=== PATIENT | female | born 1985 | race African-American/Black ===

== ENCOUNTER 2016-07-05 16:37 | Emergency (ER) | payer MEDICAID ==
--- NOTE | 2016-07-05 16:50 | ER Document Report ---
ED Medical Screen (RME) - General Stated Complaint: ALCOHOL WITHDRAW Time seen by provider: 16:46 Mode of Arrival: Ambulatory Information source: Patient Notes: 30-year-old female presents to ED for alcohol withdrawal. States her last drink was 10 PM yesterday states she was drinking malt beverages and does not know how many. She states she been drinking for the last 3 days. Today she's having shaking balance is off having difficulty in sleeping felt like she was having trouble breathing and nausea and vomiting. States she came to the ED last time she had a binge stop drinking. She states the symptoms today are worse than last time. Last menstrual period 06/13/2016. I have greeted and performed a rapid initial assessment of this patient. A comprehensive ED assessment and evaluation of the patient, analysis of test results and completion of medical decision making process will be conducted by an additional ED providers. TRAVEL OUTSIDE OF THE [place] IN LAST 30 DAYS: No - Related Data Allergies/Adverse Reactions: banana [Banana] Allergy (Verified 05/16/16 08:33) latex [Latex] Allergy (Verified 05/16/16 08:33) peach [[place]] Allergy (Verified 05/16/16 08:33) strawberry [[place]] Allergy (Verified 05/16/16 08:33) Past Medical History - Past Medical History Cardiac Medical History: Reports: Hx Hypertension Pulmonary Medical History: Reports: Hx Asthma - as a child GI Medical History: Denies: Hx Gastritis, Hx Gastroesophageal Reflux Disease, Hx Ulcer Musculoskeltal Medical History: Reports Hx Arthritis - right knee Past Surgical History: Reports: Hx Abdominal Surgery - GBP, Hx Gastric Bypass Surgery - Immunizations Immunizations up to date: Yes Hx Diphtheria, Pertussis, Tetanus Vaccination: Yes Physical Exam - Vital signs Vitals: Temp Pulse Resp BP Pulse Ox 98.2 F 91 20 153/106 H 94 07/05/16 16:45 07/05/16 16:45 07/05/16 16:45 07/05/16 16:45 07/05/16 16:45 Course - Vital Signs Vital signs: Temp Pulse Resp BP Pulse Ox 98.2 F 91 20 153/106 H 94 07/05/16 16:45 07/05/16 16:45 07/05/16 16:45 07/05/16 16:45 07/05/16 16:45
[2016-07-05] MEDS ORDERED: ONDANSETRON 4 MG TAB.RAPDIS PO ONE (16:51)
[2016-07-05 17:28] LABS: ABSOLUTE LYMPHOCYTES (AUTO) 0.7 10^3/uL (0.5-4.7); ABSOLUTE MONOCYTES (AUTO) 0.3 10^3/uL (0.1-1.4); ABSOLUTE NEUT (AUTO) 6.1 10^3/uL (1.7-8.2); BASOPHILS % (AUTO) 0.3 % (0-2); EOSINOPHILS % (AUTO) 0.5 % (0-6); HEMATOCRIT 43.9 % (36.0-47.0); HEMOGLOBIN 14.4 g/dL (12.0-15.5); HGB HCT DIFFERENCE -0.7; LYMPHOCYTES % (AUTO) 9.6 % (13-45); MEAN CORPUSCULAR HEMOGLOBIN 32.4 pg (27.0-33.4); MEAN CORPUSCULAR HGB CONC 32.8 g/dL (32.0-36.0); MEAN CORPUSCULAR VOLUME 99 fl (80-97); MONOCYTES % (AUTO) 4.1 % (3-13); RED BLOOD COUNT 4.44 10^6/uL (3.72-5.28); SEGMENTED NEUTROPHILS % (AUTO) 85.5 % (42-78); WHITE BLOOD COUNT 7.2 10^3/uL (4.0-10.5)
[2016-07-05 17:42] LABS: APPEARANCE,URINE SLIGHTLY-CLOUDY; BILIRUBIN,URINE NEGATIVE (NEGATIVE); GLUCOSE, URINE NEGATIVE (NEGATIVE); KETONES,URINE NEGATIVE (NEGATIVE); LEUKOCYTE ESTERASE,URINE NEGATIVE (NEGATIVE); NITRITE,URINE NEGATIVE (NEGATIVE); PROTEIN,URINE NEGATIVE (NEGATIVE); URINE SPECIFIC GRAVITY 1.012; UROBILINOGEN,URINE NEGATIVE mg/dL (<2.0)
[2016-07-05 17:46] LABS: URINE BARBITURATES SCREEN NEGATIVE; URINE METHADONE SCREEN NEGATIVE; URINE PHENCYCLIDINE SCREEN NEGATIVE
[2016-07-05 17:50] LABS: ALANINE AMINOTRANSFERASE 25 U/L (9-52); ALBUMIN 4.6 g/dL (3.5-5.0); ALCOHOL 153 mg/dL (NONE DETECTED); ALKALINE PHOSPHATASE 54 U/L (38-126); ANION GAP 15 (5-19); ASPARTATE AMINO TRANSFERASE 36 U/L (14-36); BILIRUBIN,TOTAL 0.9 mg/dL (0.2-1.3); BLOOD UREA NITROGEN 7 mg/dL (7-20); CALCIUM 8.8 mg/dL (8.4-10.2); CARBON DIOXIDE 28 mmol/L (22-30); CHLORIDE 104 mmol/L (98-107); CREATININE RESULT 0.82 mg/dL (0.52-1.25); GLUCOSE 85 mg/dL (75-110); POTASSIUM 3.9 mmol/L (3.6-5.0); SODIUM 146.7 mmol/L (137-145); TOTAL PROTEIN 7.5 g/dL (6.3-8.2)
[2016-07-05] MEDS ORDERED: NORMAL SALINE 1000 ML 1,000 ML IV ONE (18:52)
[2016-07-05] MEDS ORDERED: DIAZEPAM 5 MG TABLET PO ONE (18:52)
[2016-07-05] MEDS ORDERED: ONDANSETRON ODT 4 MG TAB (6 TAB/DSPK) PO PRN (18:54)
--- NOTE | 2016-07-05 18:55 | ER Document Report ---
ED General - General Chief Complaint: Alcohol Withdrawl Stated Complaint: ALCOHOL WITHDRAW Mode of Arrival: Ambulatory Notes: Patient is a 30-year-old female presents with concerns of alcohol withdrawal. States that she binges for approximately 3 days every month but does not drink alcohol in between these episodes. She was seen for a similar episode approximately 3 weeks ago for which she was seen in the emergency department. She is complaining of diffuse body aches, feelings of dehydration, nausea and vomiting. She has not tried anything to improve her symptoms and has not noticed that anything worsens her symptoms. She denies any coingestions. Denies any suicidal or homicidal ideation. She has not seen her primary care physician regarding today's concerns. TRAVEL OUTSIDE OF THE [place] IN LAST 30 DAYS: No - Related Data Allergies/Adverse Reactions: banana [Banana] Allergy (Verified 07/05/16 16:49) latex [Latex] Allergy (Verified 07/05/16 16:49) peach [[place]] Allergy (Verified 07/05/16 16:49) strawberry [[place]] Allergy (Verified 07/05/16 16:49) Past Medical History - General Information source: Patient - Social History Smoking Status: Current Every Day Smoker Chew tobacco use (# tins/day): No Frequency of alcohol use: Heavy Drug Abuse: None Lives with: Spouse/Significant other Family History: Reviewed & Not Pertinent Patient has suicidal ideation: No Patient has homicidal ideation: No - Past Medical History Cardiac Medical History: Reports: Hx Hypertension Pulmonary Medical History: Reports: Hx Asthma - as a child Renal/ Medical History: Denies: Hx Peritoneal Dialysis GI Medical History: Denies: Hx Gastritis, Hx Gastroesophageal Reflux Disease, Hx Ulcer Musculoskeltal Medical History: Reports Hx Arthritis - right knee Past Surgical History: Reports: Hx Abdominal Surgery - GBP, Hx Gastric Bypass Surgery - Immunizations Immunizations up to date: Yes Hx Diphtheria, Pertussis, Tetanus Vaccination: Yes Review of Systems - Review of Systems Notes: Constitutional: Negative for fever. Positive for myalgias HENT: Negative for sore throat. Eyes: Negative for visual changes. Cardiovascular: Negative for chest pain. Respiratory: Negative for shortness of breath. Gastrointestinal: Negative for abdominal pain, positive for vomiting Genitourinary: Negative for dysuria. Musculoskeletal: Negative for back pain. Skin: Negative for rash. Neurological: Negative for headaches, weakness or numbness. 10 point ROS negative except as marked above and in HPI. Physical Exam - Vital signs Vitals: Temp Pulse Resp BP Pulse Ox 98.2 F 91 20 153/106 H 94 07/05/16 16:45 07/05/16 16:45 07/05/16 16:45 07/05/16 16:45 07/05/16 16:45 Interpretation: Hypertensive Notes: PHYSICAL EXAMINATION: GENERAL: Well-appearing, well-nourished and in no acute distress. HEAD: Atraumatic, normocephalic. EYES: Pupils equal round and reactive to light, extraocular movements intact, sclera anicteric, conjunctiva are normal. ENT: nares patent, oropharynx clear without exudates. Moist mucous membranes. NECK: Normal range of motion, supple without lymphadenopathy LUNGS: Breath sounds clear to auscultation bilaterally and equal. No wheezes rales or rhonchi. HEART: Regular rate and rhythm without murmurs ABDOMEN: Soft, nontender, normoactive bowel sounds. No guarding, no rebound. No masses appreciated. EXTREMITIES: Normal range of motion, no pitting or edema. No cyanosis. NEUROLOGICAL: No focal neurological deficits. Moves all extremities spontaneously and on command. PSYCH: Normal mood, normal affect. SKIN: Warm, Dry, normal turgor, no rashes or lesions noted. Course - Re-evaluation Re-evalutation: 07/05/16 18:54 Patient presents with acute alcohol intoxication without any additional acute complaints. Admits to heavy alcohol use today. No evidence of trauma on exam. Patient was monitored in the emergency department until they were clinically sober. Able to ambulate and talking clear sentences prior to discharge. Tolerating oral intake without difficulty. The patient has been instructed to seek help for alcohol detoxification. She was given a small amount of Librium time of discharge to help through an anticipated mild withdrawal. At this time will discharge with return precautions and follow-up recommendations. Verbal discharge instructions given a the bedside and opportunity for questions given. Medication warnings reviewed. Patient is in agreement with this plan and has verbalized understanding of return precautions and the need for primary care follow-up in the next 24-72 hours. - Vital Signs Vital signs: Temp Pulse Resp BP Pulse Ox 98.4 F 84 20 146/93 H 99 07/05/16 20:00 07/05/16 20:00 07/05/16 20:00 07/05/16 20:00 07/05/16 20:00 - Laboratory Result Diagrams: 07/05/16 17:05 07/05/16 17:05 Laboratory results interpreted by me: 07/05/16 07/05/16 07/05/16 17:05 17:05 17:05 MCV 99 H RDW 15.0 H Plt Count 128 L Seg Neutrophils % 85.5 H Lymphocytes % 9.6 L Sodium 146.7 H Urine Blood SMALL H Discharge - Discharge Clinical Impression: Alcohol withdrawal Qualifiers: Complication of substance-induced condition: uncomplicated Qualified Code(s): F10.230 - Alcohol dependence with withdrawal, uncomplicated Condition: Good Disposition: HOME, SELF-CARE Additional Instructions: You need to return to the emergency room immediately if you pass out, or vomiting so severely your unable to keep anything down, start hallucinate, or have any other symptoms that are of concern to you. You need to go to an inpatient program and should speak with your primary care doctor regarding these resources. Take the Librium 25 mg every 6 hours up to 4 times as needed for insomnia and agitation. Use the Zofran 48 mg every 6 hours as needed for nausea and vomiting. Prescriptions: Chlordiazepoxide HCl [Librium 25 mg Capsule] 1 cap PO QID #6 capsule Referrals: DEVIKA PEREZ DO [Primary Care Provider] - Follow up in 3-5 days
[2016-07-05 20:24] VITALS: BP 146/93
== END 2016-07-05 20:00 | disposition home or self-care (01) ==
LOC: ER 16:37
DX: F10.230 Alcohol dependence with withdrawal, uncomplicated (principal); F17.210 Nicotine dependence, cigarettes, uncomplicated
CPT/HCPCS: 99284; 96360; 36415; 80307 ×2; 83735; 84703; 85025; 80053; 81001; J3490; S0119; J7030

== ENCOUNTER 2016-07-14 23:32 | Emergency (ER) | payer MEDICAID, OTHER ==
--- NOTE | 2016-07-15 01:26 | ER Document Report ---
ED General - General Chief Complaint: Skin Problem Stated Complaint: POSSIBLE RASH Notes: Patient is a 30-year-old female without past medical history who presents with 1 week of a rash in her bilateral inner thighs and lower torso. Describes the rash as a pruritic, painful rash. She has been trying permethrin cream as well as antihistamines without any improvement of her symptoms. She denies any history of similar symptoms in the past. Nothing worsens her symptoms. She has not seen her primary care physician regarding today's concern. She denies any associated fever, nausea, vomiting, headache, neck pain, or altered mental status. No known sick contacts. TRAVEL OUTSIDE OF THE [place] IN LAST 30 DAYS: No - Related Data Allergies/Adverse Reactions: banana [Banana] Allergy (Verified 07/05/16 16:49) latex [Latex] Allergy (Verified 07/05/16 16:49) peach [[place]] Allergy (Verified 07/05/16 16:49) strawberry [[place]] Allergy (Verified 07/05/16 16:49) Past Medical History - General Information source: Patient - Social History Smoking Status: Current Every Day Smoker Chew tobacco use (# tins/day): No Frequency of alcohol use: Occasional Drug Abuse: None Lives with: Spouse/Significant other Family History: Reviewed & Not Pertinent Patient has suicidal ideation: No Patient has homicidal ideation: No - Past Medical History Cardiac Medical History: Reports: Hx Hypertension Pulmonary Medical History: Reports: Hx Asthma - as a child Renal/ Medical History: Denies: Hx Peritoneal Dialysis GI Medical History: Denies: Hx Gastritis, Hx Gastroesophageal Reflux Disease, Hx Ulcer Musculoskeltal Medical History: Reports Hx Arthritis - right knee Past Surgical History: Reports: Hx Abdominal Surgery - GBP, Hx Gastric Bypass Surgery - Immunizations Immunizations up to date: Yes Hx Diphtheria, Pertussis, Tetanus Vaccination: Yes Review of Systems - Review of Systems Notes: Constitutional: Negative for fever. HENT: Negative for sore throat. Eyes: Negative for visual changes. Cardiovascular: Negative for chest pain. Respiratory: Negative for shortness of breath. Gastrointestinal: Negative for abdominal pain, vomiting or diarrhea. Genitourinary: Negative for dysuria. Musculoskeletal: Negative for back pain. Skin: Positive for rash. Neurological: Negative for headaches, weakness or numbness. 10 point ROS negative except as marked above and in HPI. Physical Exam - Vital signs Vitals: Temp Pulse Resp BP Pulse Ox 98.5 F 108 H 16 148/97 H 96 07/14/16 23:42 07/14/16 23:42 07/14/16 23:42 07/14/16 23:42 07/14/16 23:42 Interpretation: Hypertensive, Tachycardic Notes: PHYSICAL EXAMINATION: GENERAL: Well-appearing, well-nourished and in no acute distress. HEAD: Atraumatic, normocephalic. EYES: Pupils equal round and reactive to light, extraocular movements intact, sclera anicteric, conjunctiva are normal. ENT: nares patent, oropharynx clear without exudates. Moist mucous membranes. NECK: Normal range of motion, supple without lymphadenopathy LUNGS: Breath sounds clear to auscultation bilaterally and equal. No wheezes rales or rhonchi. HEART: Regular rate and rhythm without murmurs ABDOMEN: Soft, nontender, normoactive bowel sounds. No guarding, no rebound. No masses appreciated. EXTREMITIES: Normal range of motion, no pitting or edema. No cyanosis. NEUROLOGICAL: No focal neurological deficits. Moves all extremities spontaneously and on command. PSYCH: Normal mood, normal affect. SKIN: Warm, Dry, normal turgor, multiple areas over the bilateral inner thighs, lower abdomen and right chest wall of erythema with plaques. Scattered satellite lesions Course - Re-evaluation Re-evalutation: 07/15/16 01:26 Patient presents with a rash on her bilateral inner thighs, abdomen and chest wall. This is a raised rash with scattered areas of plaque. There are multiple satellite lesions. Concerning for possible topical fungal infection. Will prescribe nystatin with triamcinolone ointment and recommend oral antihistamines. Patient is otherwise nontoxic in appearance. Vitals within normal lives at the time my assessment.At this time will discharge with return precautions and follow-up recommendations. Verbal discharge instructions given a the bedside and opportunity for questions given. Medication warnings reviewed. Patient is in agreement with this plan and has verbalized understanding of return precautions and the need for primary care follow-up in the next 24-72 hours. - Vital Signs Vital signs: Temp Pulse Resp BP Pulse Ox 98.3 F 100 16 138/88 H 96 07/15/16 01:40 07/15/16 01:40 07/15/16 01:40 07/15/16 01:40 07/15/16 01:40 Discharge - Discharge Clinical Impression: Fungal rash of trunk Condition: Good Disposition: HOME, SELF-CARE Additional Instructions: Please apply the cream that has been prescribed as directed. You can also take [id number] cetirizine 10 mg up to 3 times daily as needed for itching. Please follow closely with your primary care physician the next several days. Return if you develop worsening of the rash, fever greater than 100.4F, have spreading of the rash, or have any other symptoms that are concerning to you. Prescriptions: Nystatin/Triamcin [Nystatin-Triamcinolone Ointm] 60 gm TP TID #60 oint...g. Referrals: DEVIKA PEREZ DO [Primary Care Provider] - Follow up tomorrow
[2016-07-15 01:48] VITALS: BP 138/88
== END 2016-07-15 01:48 | disposition home or self-care (01) ==
LOC: ER 23:32
DX: B48.8 Other specified mycoses (principal); I10 Essential (primary) hypertension; F17.200 Nicotine dependence, unspecified, uncomplicated; Z91.018 Allergy to other foods; Z91.040 Latex allergy status; Z98.84 Bariatric surgery status
CPT/HCPCS: 99283

== ENCOUNTER 2016-08-01 13:30 | Emergency (ER) | payer MEDICAID ==
[2016-08-01 14:00] VITALS: BP 141/98
--- NOTE | 2016-08-01 14:02 | ER Document Report ---
ED Medical Screen (RME) - General Stated Complaint: RIGHT KNEE PAIN, SWELLING Notes: patient p/w chronic knee pain and wants a new MRI today I have greeted and performed a rapid initial assessment of this patient. A comprehensive ED assessment and evaluation of the patient, analysis of test results and completion of the medical decision making process will be conducted by additional ED providers. TRAVEL OUTSIDE OF THE [place] IN LAST 30 DAYS: No - Related Data Allergies/Adverse Reactions: banana [Banana] Allergy (Verified 07/05/16 16:49) latex [Latex] Allergy (Verified 07/05/16 16:49) peach [[place]] Allergy (Verified 07/05/16 16:49) strawberry [[place]] Allergy (Verified 07/05/16 16:49) Past Medical History - Past Medical History Cardiac Medical History: Reports: Hx Hypertension Pulmonary Medical History: Reports: Hx Asthma - as a child Renal/ Medical History: Denies: Hx Peritoneal Dialysis GI Medical History: Denies: Hx Gastritis, Hx Gastroesophageal Reflux Disease, Hx Ulcer Musculoskeltal Medical History: Reports Hx Arthritis - right knee Past Surgical History: Reports: Hx Abdominal Surgery - GBP, Hx Gastric Bypass Surgery - Immunizations Immunizations up to date: Yes Hx Diphtheria, Pertussis, Tetanus Vaccination: Yes Physical Exam - Vital signs Vitals: Temp Pulse BP Pulse Ox 97.9 F 86 141/98 H 98 08/01/16 13:58 08/01/16 13:58 08/01/16 13:58 08/01/16 13:58 Course - Vital Signs Vital signs: Temp Pulse Resp BP Pulse Ox 97.9 F 86 141/98 H 98 08/01/16 13:58 08/01/16 13:58 08/01/16 13:58 08/01/16 13:58
== END 2016-08-01 16:53 | disposition left against medical advice (07) ==
LOC: ER 13:30
DX: G89.29 Other chronic pain (principal); M25.561 Pain in right knee; I10 Essential (primary) hypertension; Z91.018 Allergy to other foods; Z91.040 Latex allergy status; Z98.84 Bariatric surgery status; Z53.20 Procedure and treatment not carried out because of patient's decision for unspecified reasons
CPT/HCPCS: 99281

== ENCOUNTER 2016-08-24 08:36 | Emergency (ER) | payer MEDICAID ==
[2016-08-24] MEDS ORDERED: ONDANSETRON HCL INJ/PF 4 MG/2 ML SDV IV ONE (09:34)
[2016-08-24] MEDS: NORMAL SALINE 1000 ML 1,000 ML IV PRN ×2 (09:43→11:37)
[2016-08-24 09:48] LABS: ABSOLUTE EOSINOPHILS # (AUTO) 0.1 10^3/uL (0.0-0.6); ABSOLUTE LYMPHOCYTES (AUTO) 1.7 10^3/uL (0.5-4.7); ABSOLUTE MONOCYTES (AUTO) 0.4 10^3/uL (0.1-1.4); ABSOLUTE NEUT (AUTO) 3.1 10^3/uL (1.7-8.2); BASOPHILS % (AUTO) 0.8 % (0-2); EOSINOPHILS % (AUTO) 2.3 % (0-6); HEMATOCRIT 43.5 % (36.0-47.0); HEMOGLOBIN 14.8 g/dL (12.0-15.5); HGB HCT DIFFERENCE 0.9; MEAN CORPUSCULAR HEMOGLOBIN 31.9 pg (27.0-33.4); MEAN CORPUSCULAR HGB CONC 33.9 g/dL (32.0-36.0); MEAN CORPUSCULAR VOLUME 94 fl (80-97); MONOCYTES % (AUTO) 7.2 % (3-13); RED BLOOD COUNT 4.64 10^6/uL (3.72-5.28); RED CELL DISTRIBUTION WIDTH 15.7 % (11.5-14.0); SEGMENTED NEUTROPHILS % (AUTO) 57.7 % (42-78); WHITE BLOOD COUNT 5.3 10^3/uL (4.0-10.5)
--- NOTE | 2016-08-24 09:58 | ER Document Report ---
ED Substance Abuse / Acc. OD - General Chief Complaint: Alcohol Withdrawl Stated Complaint: ETOH WITHDRAWL Time seen by provider: 09:53 Mode of Arrival: Ambulatory Information source: Patient Notes: 30-year-old female presents to ED for nausea vomiting and dehydration. She states she has been on a binge for alcohol. The last 3 days drinking at least 10 her right chest eliminating her last one was at 1900 yesterday. She started drinking trying to drink water and states she has vomited every water she has drank. She states she usually binge drinks one week out of the month and has a therapy and classes status post to start next week. She states she has tried AA and failed that TRAVEL OUTSIDE OF THE [place] IN LAST 30 DAYS: No - HPI Patient complains to provider of: Alcohol abuse Onset: Yesterday Onset/Duration: Gradual Quality of pain: No pain Severity: None Pain Level: Denies Overdose of: Alcohol Associated Symptoms: Nausea/vomiting Similar symptoms previously: Yes - Related Data Allergies/Adverse Reactions: banana [Banana] Allergy (Verified 08/24/16 08:43) latex [Latex] Allergy (Verified 08/24/16 08:43) peach [[place]] Allergy (Verified 08/24/16 08:43) strawberry [[place]] Allergy (Verified 08/24/16 08:43) Past Medical History - General Information source: Patient Last Menstrual Period: 08/16/2016 - Social History Smoking Status: Current Every Day Smoker Cigarette use (# per day): Yes - half pack per day Chew tobacco use (# tins/day): No Frequency of alcohol use: Heavy - Binge drinks at least 1 week out of the month Drug Abuse: None Lives with: Alone Family History: Arthritis, DM, Hypertension, Malignancy, Thyroid Disfunction Patient has suicidal ideation: No Patient has homicidal ideation: No - Past Medical History Cardiac Medical History: Reports: Hx Hypertension Pulmonary Medical History: Reports: Hx Asthma - as a child EENT Medical History: Reports: None Neurological Medical History: Reports: None Endocrine Medical History: Reports: None Renal/ Medical History: Reports: Hx Ovarian Cysts Malignancy Medical History: Reports: None GI Medical History: Reports: None Musculoskeltal Medical History: Reports Hx Arthritis - right knee Skin Medical History: Reports None Psychiatric Medical History: Reports: None Traumatic Medical History: Reports: None Infectious Medical History: Reports: None Past Surgical History: Reports: Hx Gastric Bypass Surgery, Hx Oral Surgery - [place] teeth, Hx Umbilical Hernia - Immunizations Immunizations up to date: Yes Hx Diphtheria, Pertussis, Tetanus Vaccination: Yes Review of Systems - Review of Systems Constitutional: No symptoms reported EENT: No symptoms reported Cardiovascular: No symptoms reported Respiratory: No symptoms reported Gastrointestinal: Abdominal pain, Nausea, Vomiting Genitourinary: No symptoms reported Female Genitourinary: No symptoms reported Musculoskeletal: No symptoms reported Skin: No symptoms reported Hematologic/Lymphatic: No symptoms reported Neurological/Psychological: No symptoms reported Physical Exam - Vital signs Vitals: Temp Pulse Resp BP Pulse Ox 98.1 F 93 20 151/119 H 97 08/24/16 08:41 08/24/16 08:41 08/24/16 08:41 08/24/16 08:41 08/24/16 08:41 Interpretation: Normal - General General appearance: Appears well, Alert - HEENT Head: Normocephalic, Atraumatic Eyes: Normal Pupils: PERRL - Respiratory Respiratory status: No respiratory distress Chest status: Nontender Breath sounds: Normal Chest palpation: Normal - Cardiovascular Rhythm: Regular Heart sounds: Normal auscultation Murmur: No - Abdominal Inspection: Normal Distension: No distension Bowel sounds: Normal Tenderness: Tender - Generalized Organomegaly: No organomegaly - Back Back: Normal, Nontender - Extremities General upper extremity: Normal inspection, Nontender, Normal color, Normal ROM , Normal temperature General lower extremity: Normal inspection, Nontender, Normal color, Normal ROM , Normal temperature, Normal weight bearing. No: Vikki's sign - Neurological Neuro grossly intact: Yes Cognition: Normal Orientation: AAOx4 Simpson Coma Scale Eye Opening: Spontaneous [place] Coma Scale Verbal: Oriented [place] Coma Scale Motor: Obeys Commands [place] Coma Scale Total: 15 Speech: Normal Motor strength normal: LUE, RUE, LLE, RLE Sensory: Normal - Psychological Associated symptoms: Normal affect, Normal mood - Skin Skin Temperature: Warm Skin Moisture: Dry Skin Color: Normal Course - Re-evaluation Re-evalutation: 08/24/16 16:42 Patient is steady on her feet, alert and oriented and was requested to call a ride home and was put up for discharge. Patient encouraged to please stop drinking increase by mouth intake and to follow-up with her counselor and program for alcoholics. - Vital Signs Vital signs: Temp Pulse Resp BP Pulse Ox 99.2 F 82 16 156/98 H 98 08/24/16 17:11 08/24/16 17:11 08/24/16 17:11 08/24/16 17:11 08/24/16 17:11 - Laboratory Result Diagrams: 08/24/16 09:19 08/24/16 09:19 Laboratory results interpreted by me: 08/24/16 08/24/16 09:19 09:19 RDW 15.7 H Sodium 145.6 H BUN 6 L AST 90 H ALT 66 H Discharge - Discharge Clinical Impression: Alcohol abuse Alcohol intoxication Qualifiers: Complication of substance-induced condition: uncomplicated Qualified Code(s): F10.120 - Alcohol abuse with intoxication, uncomplicated Condition: Stable Disposition: HOME, SELF-CARE Instructions: Family Physicians / Practices Additional Instructions: Acute Alcohol Intoxication Your evaluation revealed very high levels of alcohol. You can from drinking a large amount of alcohol rapidly! Further, there's the risk of falls , traffic accidents, and fights. A high portion (about 50 percent) of the serious injuries seen in hospital emergency rooms are caused by alcohol. Alcohol overdosage is usually due to an underlying emotional or psychiatric problem. You may benefit from counselling. If "binge" drinking is an ongoing problem for you, or if you drink ANY AMOUNT of alcohol EVERY day, you most likely have a tendency to alcoholism. You should avoid alcohol totally. We can refer you for treatment. Persons with alcohol problems are often also prone to other addictions -- you should discuss any use of medications or drugs with the doctor. You should be watched at home for the next several hours by someone who has not been drinking. Get extra fluids for the next 24 hours. Call the doctor if there is repeated vomiting, increasing headache, decreasing level of alertness, or any other worsening. Intravenous (IV) Fluids As part of your care today, you received intravenous (IV) fluids. IV fluids are administered to patients who are dehydrated or to those who have certain chemical (electrolyte) abnormalities that need correcting. Antinausea Medication You have been given a medication to suppress nausea and vomiting. This type of medication can be given as a shot, pill, or suppository. It will usually last for many hours. Pills and shots usually last six to eight hours, suppositories last about 12 hours. For the typical illness, only one or two doses of the medication may be necessary. Mild lightheadedness may occur. This type of medicine can cause drowsiness. Do not drive or operate dangerous machinery while under its influence. Do not mix with alcohol. See your doctor at once if you have muscle spasms or tightness, or uncontrollable motions (particularly of the neck, mouth, or jaw). Persistent vomiting or severe lightheadedness should also be evaluated by the physician. You will given 1 IV with had thiamine folate and multivitamins in it. If you continue to drink you need to be sure that you take a multivitamin on a regular basis as well as folate and thiamine. Please follow-up with your therapist in your program to help you with your alcohol abuse. Please follow-up with your primary doctor Friday or Friday FOLLOW-UP CARE: If you have been referred to a physician for follow-up care, call the physician s office for an appointment as you were instructed or within the next two days. If you experience worsening or a significant change in your symptoms, notify the physician immediately or return to the Emergency Department at any time for re-evaluation. Prescriptions: Ondansetron [Zofran Odt 4 mg Tablet] 1 tab PO Q6H #15 tab.rapdis Forms: Elevated Blood Pressure, Smoking Cessation Education, Return to Work
[2016-08-24 10:10] LABS: ALANINE AMINOTRANSFERASE 66 U/L (9-52); ALCOHOL 185 mg/dL (NONE DETECTED); ALKALINE PHOSPHATASE 54 U/L (38-126); ANION GAP 12 (5-19); ASPARTATE AMINO TRANSFERASE 90 U/L (14-36); BILIRUBIN,TOTAL 0.7 mg/dL (0.2-1.3); BLOOD UREA NITROGEN 6 mg/dL (7-20); CALCIUM 8.9 mg/dL (8.4-10.2); CARBON DIOXIDE 30 mmol/L (22-30); CHLORIDE 104 mmol/L (98-107); CREATININE RESULT 0.79 mg/dL (0.52-1.25); GLUCOSE 88 mg/dL (75-110); POTASSIUM 3.9 mmol/L (3.6-5.0); SODIUM 145.6 mmol/L (137-145); TOTAL PROTEIN 7.1 g/dL (6.3-8.2)
[2016-08-24] MEDS ORDERED: [UNRECOGNIZED DRUG - REMARK] IV ONE ×4 (12:00)
[2016-08-24 14:36] LABS: APPEARANCE,URINE CLEAR; BILIRUBIN,URINE NEGATIVE (NEGATIVE); GLUCOSE, URINE NEGATIVE (NEGATIVE); KETONES,URINE NEGATIVE (NEGATIVE); LEUKOCYTE ESTERASE,URINE NEGATIVE (NEGATIVE); NITRITE,URINE NEGATIVE (NEGATIVE); PROTEIN,URINE NEGATIVE (NEGATIVE); URINE SPECIFIC GRAVITY 1.006; UROBILINOGEN,URINE NEGATIVE mg/dL (<2.0)
[2016-08-24 14:54] LABS: URINE BARBITURATES SCREEN NEGATIVE; URINE METHADONE SCREEN NEGATIVE; URINE OPIATES LOW NEGATIVE; URINE PHENCYCLIDINE SCREEN NEGATIVE
[2016-08-24 17:12] VITALS: BP 156/98
== END 2016-08-24 17:12 | disposition home or self-care (01) ==
LOC: ER 08:36
DX: F10.120 Alcohol abuse with intoxication, uncomplicated (principal); R11.2 Nausea with vomiting, unspecified; E86.0 Dehydration; F17.210 Nicotine dependence, cigarettes, uncomplicated; Z91.018 Allergy to other foods; Z91.040 Latex allergy status; Z98.84 Bariatric surgery status
CPT/HCPCS: 99285; 96361; 96375; 96365; 96366; 36415; 80307 ×2; 84703; 85025; 80053; 81001; J3490 ×2; J3411; J2405; J7030

== ENCOUNTER 2016-10-09 11:30 | Emergency (ER) | payer MEDICAID, OTHER ==
[2016-10-09] MEDS ORDERED: METOCLOPRAMIDE HCL ORAL SOLN 10 MG/10 ML UDCUP PO ONE (12:20)
[2016-10-09] MEDS ORDERED: MAG HYDROX/AL HYDROX/SIMETH SUSP 30 ML UDCUP PO ONE (12:20)
[2016-10-09] MEDS ORDERED: LIDOCAINE 2% VISCOUS SOLN 20 ML UDCUP PO ONE (12:20)
[2016-10-09] MEDS ORDERED: ONDANSETRON 4 MG TAB.RAPDIS PO ONE (12:23)
--- NOTE | 2016-10-09 12:23 | ER Document Report ---
ED Medical Screen (RME) - General Chief Complaint: Abdominal Pain Stated Complaint: STOMACH PAIN Mode of Arrival: Ambulatory Information source: Patient Notes: This is a 31-year-old female who presents with upper abdominal pain radiating into the left side of her chest that began yesterday about 1600. She also is concerned about a fullness in her epigastric area that has been present since her gastric bypass several years ago. She has had 2 episodes of vomiting this morning. No fevers or chills. I have greeted and performed a rapid initial assessment of this patient. A comprehensive ED assessment and evaluation of the patient, analysis of test results and completion of the medical decision making process will be conducted by additional ED providers. TRAVEL OUTSIDE OF THE [place] IN LAST 30 DAYS: No - Related Data Allergies/Adverse Reactions: banana [Banana] Allergy (Verified 08/24/16 08:43) latex [Latex] Allergy (Verified 08/24/16 08:43) peach [[place]] Allergy (Verified 08/24/16 08:43) strawberry [[place]] Allergy (Verified 08/24/16 08:43) Past Medical History - Past Medical History Cardiac Medical History: Reports: Hx Hypertension Pulmonary Medical History: Reports: Hx Asthma - as a child Renal/ Medical History: Reports: Hx Ovarian Cysts. Denies: Hx Peritoneal Dialysis GI Medical History: Denies: Hx Gastritis, Hx Gastroesophageal Reflux Disease, Hx Ulcer Musculoskeltal Medical History: Reports Hx Arthritis - right knee Past Surgical History: Reports: Hx Abdominal Surgery - GBP, Hx Gastric Bypass Surgery, Hx Oral Surgery - [place] teeth, Hx Umbilical Hernia - Immunizations Immunizations up to date: Yes Hx Diphtheria, Pertussis, Tetanus Vaccination: Yes Physical Exam - Vital signs Vitals: Temp Pulse Resp BP Pulse Ox 98.4 F 95 18 165/112 H 99 10/09/16 11:31 10/09/16 11:31 10/09/16 11:31 10/09/16 11:31 10/09/16 11:31 Course - Vital Signs Vital signs: Temp Pulse Resp BP Pulse Ox 98.4 F 95 18 165/112 H 99 10/09/16 11:31 10/09/16 11:31 10/09/16 11:31 10/09/16 11:31 10/09/16 11:31 - Laboratory Result Diagrams: 10/09/16 12:35 10/09/16 12:35 Laboratory results interpreted by me: 10/09/16 10/09/16 10/09/16 12:35 12:35 12:35 Hgb 15.7 H RDW 15.0 H Seg Neutrophils % 82.7 H Lymphocytes % 12.3 L Total Bilirubin 1.7 H Direct Bilirubin 0.5 H Total Protein 8.4 H Amylase 121 H Lipase 619.1 H Urine Ketones Urine Blood Urine Urobilinogen 10/09/16 17:45 Hgb RDW Seg Neutrophils % Lymphocytes % Total Bilirubin Direct Bilirubin Total Protein Amylase Lipase Urine Ketones 20 H Urine Blood SMALL H Urine Urobilinogen 2.0 H
[2016-10-09 13:00] LABS: ABSOLUTE LYMPHOCYTES (AUTO) 1.2 10^3/uL (0.5-4.7); ABSOLUTE MONOCYTES (AUTO) 0.4 10^3/uL (0.1-1.4); ABSOLUTE NEUT (AUTO) 7.8 10^3/uL (1.7-8.2); BASOPHILS % (AUTO) 0.5 % (0-2); EOSINOPHILS % (AUTO) 0.4 % (0-6); HEMATOCRIT 46.7 % (36.0-47.0); HEMOGLOBIN 15.7 g/dL (12.0-15.5); HGB HCT DIFFERENCE 0.4; LYMPHOCYTES % (AUTO) 12.3 % (13-45); MEAN CORPUSCULAR HEMOGLOBIN 31.7 pg (27.0-33.4); MEAN CORPUSCULAR HGB CONC 33.7 g/dL (32.0-36.0); MEAN CORPUSCULAR VOLUME 94 fl (80-97); MONOCYTES % (AUTO) 4.1 % (3-13); RED BLOOD COUNT 4.97 10^6/uL (3.72-5.28); SEGMENTED NEUTROPHILS % (AUTO) 82.7 % (42-78); WHITE BLOOD COUNT 9.4 10^3/uL (4.0-10.5)
[2016-10-09] MEDS ORDERED: ONDANSETRON HCL INJ/PF 4 MG/2 ML SDV IV ONE (13:17)
[2016-10-09] MEDS ORDERED: MORPHINE SULFATE 10 MG/ML INJ IV ONE (13:17)
[2016-10-09 13:23] LABS: ALANINE AMINOTRANSFERASE 26 U/L (9-52); ALBUMIN 4.7 g/dL (3.5-5.0); ALCOHOL < 10 mg/dL (NONE DETECTED); ALKALINE PHOSPHATASE 62 U/L (38-126); ANION GAP 14 (5-19); ASPARTATE AMINO TRANSFERASE 28 U/L (14-36); BILIRUBIN,DIRECT 0.5 mg/dL (0.0-0.4); BILIRUBIN,TOTAL 1.7 mg/dL (0.2-1.3); BLOOD UREA NITROGEN 10 mg/dL (7-20); CALCIUM 10.1 mg/dL (8.4-10.2); CARBON DIOXIDE 26 mmol/L (22-30); CHLORIDE 99 mmol/L (98-107); CREATININE RESULT 0.91 mg/dL (0.52-1.25); GLUCOSE 97 mg/dL (75-110); LIPASE 619.1 U/L (23-300); POTASSIUM 3.7 mmol/L (3.6-5.0); SODIUM 138.9 mmol/L (137-145); TOTAL PROTEIN 8.4 g/dL (6.3-8.2)
[2016-10-09] MEDS ORDERED: NORMAL SALINE 1000 ML 1,000 ML IV ONE (16:05)
[2016-10-09] MEDS ORDERED: HYDROMORPHONE HCL INJ/PF 2 MG/ML AMPULE IV ONE ×2 (16:06→20:15)
[2016-10-09] MEDS ORDERED: FAMOTIDINE 20 MG TABLET PO ONE (16:20)
--- NOTE | 2016-10-09 16:22 | ER Document Report ---
ED General - General Chief Complaint: Abdominal Pain Stated Complaint: STOMACH PAIN Time seen by provider: 15:42 Mode of Arrival: Ambulatory Information source: Patient TRAVEL OUTSIDE OF THE [place] IN LAST 30 DAYS: No - HPI Notes: This is a 31-year-old female who presents with upper abdominal pain radiating into the left upper abd that began yesterday about 1600. She also is concerned about a fullness in her epigastric area that has been present since her gastric bypass several years ago. She has had 2 episodes of vomiting this morning without blood. No fevers or chills. Patient denies any chest pain or dyspnea. Patient has a history of binge drinking of alcohol and reports last drank alcohol 4 days ago, reporting a total of 8 drinks only. Patient states that usually after she drinks alcohol she has the same left upper quadrant abdominal discomfort with nausea and similar symptoms. Patient states she was taking ibuprofen and Advil for her pain, this only made it worse. History of umbilical hernia repair 2008 and Ryan-en-Y bypass 2011. - Related Data Allergies/Adverse Reactions: banana [Banana] Allergy (Verified 08/24/16 08:43) latex [Latex] Allergy (Verified 08/24/16 08:43) peach [[place]] Allergy (Verified 08/24/16 08:43) strawberry [[place]] Allergy (Verified 08/24/16 08:43) Past Medical History - General Information source: Patient - Social History Smoking Status: Never Smoker Frequency of alcohol use: Heavy Drug Abuse: None Lives with: Alone Family History: Arthritis, DM, Hypertension, Malignancy, Thyroid Disfunction - Past Medical History Cardiac Medical History: Reports: Hx Hypertension Pulmonary Medical History: Reports: Hx Asthma - as a child Renal/ Medical History: Reports: Hx Ovarian Cysts. Denies: Hx Peritoneal Dialysis GI Medical History: Denies: Hx Gastritis, Hx Gastroesophageal Reflux Disease, Hx Ulcer Musculoskeltal Medical History: Reports Hx Arthritis - right knee Past Surgical History: Reports: Hx Abdominal Surgery - GBP, Hx Gastric Bypass Surgery, Hx Oral Surgery - [place] teeth, Hx Umbilical Hernia - Immunizations Immunizations up to date: Yes Hx Diphtheria, Pertussis, Tetanus Vaccination: Yes Review of Systems - Review of Systems Notes: REVIEW OF SYSTEMS: CONSTITUTIONAL : Denies fever, chills, or sweats. Denies recent illness. EENT: Denies eye, ear, throat, or mouth pain or symptoms. Denies nasal or sinus congestion or discharge. Denies throat, tongue, or mouth swelling or difficulty swallowing. CARDIOVASCULAR: Denies chest pain. Denies palpitations or racing or irregular heart beat. Denies ankle edema. RESPIRATORY: Denies cough, cold, or chest congestion. Denies shortness of breath, difficulty breathing, or wheezing. GASTROINTESTINAL: Denies diarrhea. Denies blood in vomitus, stools, or per rectum. Denies black, tarry stools. Denies constipation. GENITOURINARY: Denies difficulty urinating, painful urination, burning, frequency, blood in urine, or discharge. FEMALE GENITOURINARY: Denies vaginal bleeding, heavy or abnormal periods, irregular periods. Denies vaginal discharge or odor. MUSCULOSKELETAL: Denies back or neck pain or stiffness. Denies joint pain or swelling. SKIN: Denies rash, lesions or sores. HEMATOLOGIC : Denies easy bruising or bleeding. LYMPHATIC: Denies swollen, enlarged glands. NEUROLOGICAL: Denies confusion or altered mental status. Denies passing out or loss of consciousness. Denies dizziness or lightheadedness. Denies headache. Denies weakness or paralysis or loss of use of either side. Denies problems with gait or speech. Denies sensory loss, numbness, or tingling. Denies seizures. PSYCHIATRIC: Denies anxiety or stress. Denies depression, suicidal ideation, or homicidal ideation. ALL OTHER SYSTEMS REVIEWED AND NEGATIVE. Dictation was performed using [employer] voice recognition software Physical Exam - Vital signs Vitals: Temp Pulse Resp BP Pulse Ox 98.4 F 95 18 165/112 H 99 10/09/16 11:31 10/09/16 11:31 10/09/16 11:31 10/09/16 11:31 10/09/16 11:31 - Notes Notes: PHYSICAL EXAMINATION: GENERAL: Well-appearing, well-nourished and in no acute distress. HEAD: Atraumatic, normocephalic. EYES: Pupils equal round and reactive to light, extraocular movements intact, conjunctiva are normal. ENT: Nares patent, oropharynx clear without exudates. Moist mucous membranes. NECK: Normal range of motion, supple without lymphadenopathy LUNGS: Breath sounds clear to auscultation bilaterally and equal. No wheezes rales or rhonchi. HEART: Regular rate and rhythm without murmurs ABDOMEN: Soft, surgical scar is well-healed. Patient is tender to the midepigastric to slight left upper quadrant region. Supraumbilical area patient has small palpable mass consistent with previous umbilical hernia repair , but this area is completely nontender and without any erythema. Negative Torres's. Female : deferred Musculoskeletal: Normal range of motion, no pitting or edema. No cyanosis. NEUROLOGICAL: Cranial nerves grossly intact. Normal speech, normal gait. Normal sensory, motor exams PSYCH: Normal mood, normal affect. SKIN: Warm, Dry, normal turgor, no rashes or lesions noted. Course - Re-evaluation Re-evalutation: 10/09/16 16:43 Patient was given GI cocktail and Zofran and morphine with some relief of pain. Patient is given dilaudid IV with Pepcid and normal saline bolus. 10/09/16 20:18 CT scan showed no obvious evidence for bowel obstruction, and there was no report of any constipation or abdominal bloating. The patient did have a small palpable mass supraumbilical region consistent with previous umbilical hernia surgery, but she was nontender to that region. The patient was told that she needed to follow-up with a bariatric surgeon for further evaluation of the small mass area and possible upper endoscopy. Patient's abdominal pain may be partly related to her low level pancreatitis, and that may be secondary to the recent drinking of alcohol and the vomiting. The patient's use of anti-inflammatory medications recently may also be contributory to a gastritis. There is no suggestion for GI bleed or significant hepatitis. The patient's mild bilirubin elevation with a low direct bili is thought secondary to mild dehydration related to previous vomiting, alcohol use and decreased by mouth fluids. Patient was rehydrated with IV fluids. Her blood pressure was slightly elevated , but she stated she had run out of her lisinopril 10 mg tablets. The patient also reported that she was out of her Zoloft and Xanax. I discussed at length with the patient and need to avoid anti-inflammatories and to avoid drinking alcohol. Ultrasound showed no common bile duct dilatation or other intrahepatic ductal dilatation which would be indicative of a biliary obstructive process with pancreatic ductal stone. Likewise CT scan showed no evidence. There is no evidence for acute cholecystitis. No evidence for abdominal aortic aneurysm no evidence for diverticulitis. - Vital Signs Vital signs: Temp Pulse Resp BP Pulse Ox 98.9 F 81 18 148/106 H 98 10/09/16 19:14 10/09/16 19:14 10/09/16 11:34 10/09/16 19:14 10/09/16 19:14 - Laboratory Result Diagrams: 10/09/16 12:35 10/09/16 12:35 Laboratory results interpreted by me: 10/09/16 10/09/16 10/09/16 12:35 12:35 12:35 Hgb 15.7 H RDW 15.0 H Seg Neutrophils % 82.7 H Lymphocytes % 12.3 L Total Bilirubin 1.7 H Direct Bilirubin 0.5 H Total Protein 8.4 H Amylase 121 H Lipase 619.1 H Urine Ketones Urine Blood Urine Urobilinogen 10/09/16 17:45 Hgb RDW Seg Neutrophils % Lymphocytes % Total Bilirubin Direct Bilirubin Total Protein Amylase Lipase Urine Ketones 20 H Urine Blood SMALL H Urine Urobilinogen 2.0 H Discharge - Discharge Clinical Impression: Vomiting, Gastritis, Pancreatitis, Abdominal pain, Hypertension Condition: Stable Disposition: HOME, SELF-CARE Instructions: Abdominal Pain ([facility]), Intravenous (IV) Fluids ([facility]), Pain Medication Injection ([facility]), Vomiting ([facility]), Oral Narcotic Medication ([facility]), Pancreatitis ([facility]), Gastritis ([facility]) Additional Instructions: Avoid drinking alcohol. Avoid taking all anti-inflammatories such as ibuprofen, Advil, Motrin, Naprosyn. Return to the ED in case of severe pain, vomiting, any fever. You need to follow-up with a bariatric specialist (Dr. Viveros) for possible upper endoscopy and evaluation of your Ryan-en-Y, as well as for follow-up of the small fluid collection in the anterior abdominal wall. Prescriptions: Hydrocodone/Acetaminophen [[place] 5-325 mg Tablet] 1 tab PO Q4HP PRN #25 tablet PRN Reason: Ondansetron [Zofran Odt 4 mg Tablet] 1 tab PO Q8HP PRN #15 tab.rapdis PRN Reason: For Nausea/Vomiting Lisinopril 10 mg PO DAILY #30 tablet Omeprazole 40 mg PO DAILY #30 capsule. Sertraline HCl [Zoloft 50 mg Tablet] 50 mg PO DAILY #30 tablet Referrals: BRAD,MAYRA, MD [Primary Care Provider] - Follow up as needed ASHLEY VIVEROS MD [NO LOCAL MD] - Follow up as needed
[2016-10-09] MEDS ORDERED: DIPHENHYDRAMINE HCL 50 MG/ML VIAL IV ONE (17:30)
[2016-10-09 18:01] LABS: APPEARANCE,URINE CLEAR; BILIRUBIN,URINE NEGATIVE (NEGATIVE); GLUCOSE, URINE NEGATIVE (NEGATIVE); KETONES,URINE 20 mg/dL (NEGATIVE); LEUKOCYTE ESTERASE,URINE NEGATIVE (NEGATIVE); NITRITE,URINE NEGATIVE (NEGATIVE); PROTEIN,URINE NEGATIVE (NEGATIVE)
[2016-10-09 18:05] LABS: URINE SPECIFIC GRAVITY > 1.060
[2016-10-09] MEDS ORDERED: LORAZEPAM INJ 2 MG/1 ML VIAL IV ONE (20:15)
[2016-10-09] MEDS ORDERED: HYDROCODONE/ACETAMINOPHEN 5-325 MG 6 TAB/DSPK PO PRN (20:16)
[2016-10-09] MEDS ORDERED: ONDANSETRON ODT 4 MG TAB (6 TAB/DSPK) PO PRN (20:17)
[2016-10-09 21:23] VITALS: BP 142/97
== END 2016-10-09 21:11 | disposition home or self-care (01) ==
LOC: ER 11:30
DX: K29.00 Acute gastritis without bleeding (principal); K85.20 Alcohol induced acute pancreatitis without necrosis or infection; R11.2 Nausea with vomiting, unspecified; R10.13 Epigastric pain; I10 Essential (primary) hypertension; Z91.040 Latex allergy status; Z91.018 Allergy to other foods; Z98.84 Bariatric surgery status
CPT/HCPCS: 99284; 96374; 96375; 36415; 80307; 82150; 82248; 83690; 84703; 85025; 80053; 81001; 76705; 74177; J3490 ×4; J1200; S0119; J2270; J1170; J2060; J2405; J7030

== ENCOUNTER 2016-11-19 08:58 | Emergency (ER) | payer MEDICAID ==
[2016-11-19] MEDS ORDERED: METOCLOPRAMIDE HCL ORAL SOLN 10 MG/10 ML UDCUP PO ONE (09:17)
[2016-11-19] MEDS ORDERED: LIDOCAINE 2% VISCOUS SOLN 20 ML UDCUP PO ONE (09:17)
[2016-11-19] MEDS ORDERED: MAG HYDROX/AL HYDROX/SIMETH SUSP 30 ML UDCUP PO ONE (09:17)
--- NOTE | 2016-11-19 09:21 | ER Document Report ---
ED Medical Screen (RME) - General Chief Complaint: Chest Pain Stated Complaint: CHEST PAIN Time Seen by Provider: 11/19/16 09:13 Notes: Patient is a 31 year old female presenting to the ED for help with binge drinking and chest pain. Patient states she had some chest pain this time when she was drinking. Patient's last drink was yesterday around 16:00. Her chest pain is described as sharp and constant. Patient also has nausea and vomiting. Patient has a history of hypertension and has not been taking her lisinopril; she last filled her prescription in September. I have greeted and performed a rapid initial assessment of this patient. A comprehensive ED assessment and evaluation of the patient, analysis of test results and completion of the medical decision making process will be conducted by additional ED providers. TRAVEL OUTSIDE OF THE [place] IN LAST 30 DAYS: No - Related Data Allergies/Adverse Reactions: banana [Banana] Allergy (Verified 11/19/16 09:08) latex [Latex] Allergy (Verified 11/19/16 09:08) peach [[place]] Allergy (Verified 11/19/16 09:08) strawberry [[place]] Allergy (Verified 11/19/16 09:08) Past Medical History - Past Medical History Cardiac Medical History: Reports: Hx Hypertension Pulmonary Medical History: Reports: Hx Asthma - as a child Renal/ Medical History: Reports: Hx Ovarian Cysts Musculoskeltal Medical History: Reports Hx Arthritis - right knee Past Surgical History: Reports: Hx Abdominal Surgery - GBP, Hx Gastric Bypass Surgery, Hx Oral Surgery - [place] teeth, Hx Umbilical Hernia - Immunizations Immunizations up to date: Yes Hx Diphtheria, Pertussis, Tetanus Vaccination: Yes Physical Exam - Vital signs Vitals: Temp Pulse Resp BP Pulse Ox 98.2 F 88 18 155/112 H 100 11/19/16 09:01 11/19/16 09:01 11/19/16 09:01 11/19/16 09:01 11/19/16 09:01 Interpretation: Hypertensive - Notes Notes: GENERAL: Alert, interacts well. No acute distress. LUNGS: Clear to auscultation bilaterally, no wheezes, rales, or rhonchi. No respiratory distress. HEART: Regular rate and rhythm. No murmurs, gallops, or rubs. Course - Vital Signs Vital signs: Temp Pulse Resp BP Pulse Ox 98.2 F 88 18 165/110 H 100 11/19/16 09:01 11/19/16 09:01 11/19/16 09:01 11/19/16 11:27 11/19/16 09:01 - Laboratory Result Diagrams: 11/19/16 09:39 11/19/16 09:39 Laboratory results interpreted by me: 11/19/16 11/19/16 09:39 09:39 AST 62 H Creatine Kinase 145 H Acetaminophen < 10 L Scribe Documentation - Scribe Written by Gabriel:: Gabriel Benitez, 11/19/16 9:21 acting as scribe for :: Kandi
[2016-11-19 09:52] LABS: ABSOLUTE EOSINOPHILS # (AUTO) 0.1 10^3/uL (0.0-0.6); ABSOLUTE LYMPHOCYTES (AUTO) 1.3 10^3/uL (0.5-4.7); ABSOLUTE MONOCYTES (AUTO) 0.3 10^3/uL (0.1-1.4); ABSOLUTE NEUT (AUTO) 4.2 10^3/uL (1.7-8.2); BASOPHILS % (AUTO) 0.6 % (0-2); EOSINOPHILS % (AUTO) 1.6 % (0-6); HEMATOCRIT 41.8 % (36.0-47.0); HEMOGLOBIN 14.3 g/dL (12.0-15.5); HGB HCT DIFFERENCE 1.1; LYMPHOCYTES % (AUTO) 21.5 % (13-45); MEAN CORPUSCULAR HEMOGLOBIN 31.5 pg (27.0-33.4); MEAN CORPUSCULAR HGB CONC 34.3 g/dL (32.0-36.0); MEAN CORPUSCULAR VOLUME 92 fl (80-97); MONOCYTES % (AUTO) 4.5 % (3-13); RED BLOOD COUNT 4.54 10^6/uL (3.72-5.28); RED CELL DISTRIBUTION WIDTH 13.6 % (11.5-14.0); SEGMENTED NEUTROPHILS % (AUTO) 71.8 % (42-78); WHITE BLOOD COUNT 5.9 10^3/uL (4.0-10.5)
--- NOTE | 2016-11-19 10:06 | RADIOLOGY REPORT (SQ) ---
EXAM DESCRIPTION: CHEST PA/LAT COMPLETED DATE/TIME: 11/19/2016 9:56 am REASON FOR STUDY: CP COMPARISON: June 2014 EXAM PARAMETERS: NUMBER OF VIEWS: two views TECHNIQUE: Digital Frontal and Lateral radiographic views of the chest acquired. RADIATION DOSE: NA LIMITATIONS: none FINDINGS: LUNGS AND PLEURA: No opacities, masses or pneumothorax. No pleural effusion. MEDIASTINUM AND HILAR STRUCTURES: No masses or contour abnormalities. HEART AND VASCULAR STRUCTURES: Heart normal size. No evidence for failure. BONES: No acute findings. HARDWARE: None in the chest. OTHER: Surgical clips are again identified in the left upper quadrant. IMPRESSION: NO SIGNIFICANT RADIOGRAPHIC FINDING IN THE CHEST. TECHNICAL DOCUMENTATION: JOB ID: [id number] [employer]- All Rights Reserved
[2016-11-19 10:11] LABS: ALANINE AMINOTRANSFERASE 51 U/L (9-52); ALBUMIN 4.1 g/dL (3.5-5.0); ALKALINE PHOSPHATASE 51 U/L (38-126); ANION GAP 10 (5-19); ASPARTATE AMINO TRANSFERASE 62 U/L (14-36); BILIRUBIN,DIRECT 0.2 mg/dL (0.0-0.4); BILIRUBIN,TOTAL 0.7 mg/dL (0.2-1.3); BLOOD UREA NITROGEN 8 mg/dL (7-20); CALCIUM 8.9 mg/dL (8.4-10.2); CARBON DIOXIDE 28 mmol/L (22-30); CHLORIDE 104 mmol/L (98-107); CREATINE KINASE 145 U/L (30-135); CREATININE RESULT 0.86 mg/dL (0.52-1.25); GLUCOSE 82 mg/dL (75-110); POTASSIUM 3.7 mmol/L (3.6-5.0); SODIUM 142.3 mmol/L (137-145); TOTAL PROTEIN 7.3 g/dL (6.3-8.2)
[2016-11-19] MEDS ORDERED: RINGERS SOLUTION,LACTATED 1,000 ML IV ONE (10:22)
[2016-11-19 10:23] LABS: CREATINE KINASE MB 0.58 ng/mL (<4.55); TROPONIN I < 0.012 ng/mL
[2016-11-19 11:23] LABS: LIPASE 41.6 U/L (23-300)
[2016-11-19 11:25] LABS: URINE BARBITURATES SCREEN NEGATIVE; URINE METHADONE SCREEN NEGATIVE; URINE OPIATES LOW NEGATIVE; URINE PHENCYCLIDINE SCREEN NEGATIVE
--- NOTE | 2016-11-19 12:16 | EKG REPORT ---
SEVERITY:- ABNORMAL ECG - SINUS RHYTHM ABNORMAL Q SUGGESTS ANTERIOR INFARCT : Confirmed by: Verenice Andrea MD 19-Nov-2016 12:15:51
--- NOTE | 2016-11-19 12:40 | ER Document Report ---
ED General - General Mode of Arrival: Ambulatory Information source: Patient TRAVEL OUTSIDE OF THE [place] IN LAST 30 DAYS: No - HPI Patient complains to provider of: Chest Pain Onset: This morning Onset/Duration: Sudden, Intermittent Associated symptoms: Other - See narrative Similar symptoms previously: No <ARACELIRATNA - Last Filed: 11/19/16 13:42> <ALFIE MONTERO - Last Filed: 11/26/16 03:43> - General Chief Complaint: Chest Pain Stated Complaint: CHEST PAIN Time Seen by Provider: 11/19/16 09:13 Notes: Patient is a 31-year-old female presenting to the emergency room with concerns of chest pain after a round of binge drinking. Patient states that she binge drinks approximately every few weeks for approximately 3 days. Patient states that she drank a total of 2 pints of peach vodka over a period of 3 days. Patient states she usually waits a few weeks after she binge drinks because she has to forget how bad she feels before she began to drink heavily again. Patient states that the chest pain is in the center of her chest and epigastric abdominal region. Patient denies any injuries or seizure, but admits to vomiting. Patient has a history of hypertension, but states that he does not take her Lisinopril when she drinks. (RATNA CHARLES) - Related Data Allergies/Adverse Reactions: banana [Banana] Allergy (Verified 11/19/16 09:08) latex [Latex] Allergy (Verified 11/19/16 09:08) peach [[place]] Allergy (Verified 11/19/16 09:08) strawberry [[place]] Allergy (Verified 11/19/16 09:08) Past Medical History - General Information source: Patient - Social History Smoking Status: Never Smoker Chew tobacco use (# tins/day): No Frequency of alcohol use: binge Drug Abuse: None Family History: Arthritis, DM, Hypertension, Malignancy, Thyroid Disfunction Patient has suicidal ideation: No Patient has homicidal ideation: No - Past Medical History Cardiac Medical History: Reports: Hx Hypertension Pulmonary Medical History: Reports: Hx Asthma - as a child Renal/ Medical History: Reports: Hx Ovarian Cysts Musculoskeltal Medical History: Reports Hx Arthritis - right knee Past Surgical History: Reports: Hx Abdominal Surgery - GBP, Hx Gastric Bypass Surgery, Hx Oral Surgery - [place] teeth, Hx Umbilical Hernia - Immunizations Immunizations up to date: Yes Hx Diphtheria, Pertussis, Tetanus Vaccination: Yes <RATNA CHARLES - Last Filed: 11/19/16 13:42> Review of Systems - Review of Systems Constitutional: No symptoms reported EENT: No symptoms reported Cardiovascular: See HPI, Chest pain Respiratory: No symptoms reported Gastrointestinal: See HPI, Vomiting Genitourinary: No symptoms reported Female Genitourinary: No symptoms reported Musculoskeletal: No symptoms reported Skin: No symptoms reported Hematologic/Lymphatic: No symptoms reported Neurological/Psychological: No symptoms reported -: Yes All other systems reviewed and negative <RATNA CHARLES - Last Filed: 11/19/16 13:42> Physical Exam - Vital signs Interpretation: Hypertensive - General General appearance: Alert - HEENT Head: Normocephalic, Atraumatic Eyes: Normal Pupils: PERRL - Respiratory Respiratory status: No respiratory distress Chest status: Nontender Breath sounds: Normal Chest palpation: Normal - Cardiovascular Rhythm: Regular Heart sounds: Normal auscultation Murmur: No - Abdominal Inspection: Normal Distension: No distension Bowel sounds: Normal Tenderness: Tender - mild epigastric tenderness to palpation Organomegaly: No organomegaly - Back Back: Normal, Nontender - Extremities General upper extremity: Normal inspection, Nontender General lower extremity: Normal inspection, Nontender - Neurological Neuro grossly intact: Yes Cognition: Normal Orientation: AAOx4 [place] Coma Scale Eye Opening: Spontaneous [place] Coma Scale Verbal: Oriented [place] Coma Scale Motor: Obeys Commands [place] Coma Scale Total: 15 Speech: Normal - Psychological Associated symptoms: Normal affect, Normal mood - Skin Skin Temperature: Warm Skin Moisture: Dry Skin Color: Normal <RATNA CHARLES - Last Filed: 11/19/16 13:42> Course - Laboratory Result Diagrams: 11/19/16 09:39 11/19/16 09:39 <RATNA CHARLES - Last Filed: 11/19/16 13:42> - Laboratory Result Diagrams: 11/19/16 09:39 11/19/16 09:39 <ALFIE MONTERO - Last Filed: 11/26/16 03:43> - Re-evaluation Re-evalutation: 11/19/16 12:44 Patient presents to the emergency department with chief complaint of lower chest pain and epigastric pain. She is an alcoholic and binge drinks. She has never been to rehab. She has a primary care physician here locally she will binge drink for several days and then vomit this time she vomited and retched and had a pulling sensation in her chest and her epigastric region. She will normally drink for 3 days constantly vodka with peach juice up to 2 pints of the last 3 days and then stop she denies any active withdrawal other than to just feel sick she never had an alcoholic seizure. She has not had anything to drink since Friday. Also has a history of gastric bypass. Blood pressure is elevated on arrival but she is not taking her blood pressure lisinopril at home. On examination blood pressure is elevated she is not tachycardic she is well-appearing nontoxic in no acute distress heart rate and rhythm is regular without murmur gallop or rub EKG show any evidence of acute ST segment elevation or depression EKG notes anterior infarct Q waves I do not see anything to suggest an acute MO. Her troponin is negative her pain is more epigastric and is not associated with shortness of breath diaphoresis or exertion. She has tenderness palpation of the epigastrium. Liver enzymes are normal no acute pancreatitis. She has been given IV fluids and GI cocktail. She may discharge follow-up with her primary care physician 1-2 days given information on how to get help for outpatient rehab and discussed reasons for ED return sooner. I do not clinically feel at this point this is an acute MO PE or dissection. Told her that if her symptoms worsen or change she is to follow-up immediately otherwise 1 day follow-up and discussed reasons for ED return to (ALFIE MONTERO) - Vital Signs Vital signs: Temp Pulse Resp BP Pulse Ox 98.5 F 94 18 145/106 H 100 11/19/16 13:04 11/19/16 13:04 11/19/16 13:04 11/19/16 13:04 11/19/16 13:04 - Laboratory Laboratory results interpreted by me: 11/19/16 11/19/16 09:39 09:39 AST 62 H Creatine Kinase 145 H Acetaminophen < 10 L - EKG Interpretation by Me Additional EKG results interpreted by me: 11/19/16 12:48 Interpreted by myself to reveal sinus rhythm at [address] segment elevation or depression or evidence of acute myocardial infarction. (ALFIE MONTERO) Discharge <RATNA CHARLES - Last Filed: 11/19/16 13:42> <ALFIE MONTERO - Last Filed: 11/26/16 03:43> - Discharge Clinical Impression: Chest pain nonspecific, Gastric abdominal pain, Alcohol consumption binge drinking Condition: Stable Disposition: HOME, SELF-CARE Additional Instructions: Chest Pain of Unclear Cause The exact cause of your chest pain isn't clear. Fortunately, there is no evidence of a dangerous medical condition. Further testing may be required to find the source of the pain. Most often, we find that this pain is coming from the chest wall -- the muscles or rib joints in the chest. But chest pain can come from the lung and lung lining, the esophagus, the heart valves or heart lining, and even the stomach or gallbladder. Rest. Eat lightly until the pain is gone. We may prescribe medicine for pain and inflammation. You should call the physician immediately if the pain radiates to the shoulder, jaw or arms; if you start to run a fever or develop a cough; or if you develop shortness of breath, or other new or alarming symptoms. Alcohol Treatment programs are available. In addition, many alcoholics benefit from Alcoholics Anonymous or other support groups available through your counselor or bahai webfocus developer. [facility] and A[facility]TE[facility] are support groups for friends and family members of an alcoholic. Go to the emergency room if you develop persistent vomiting, severe abdominal pain, fever, shortness of breath, hallucinations, uncontrollable tremors, or seizures. Prescriptions: Omeprazole Magnesium [Prilosec Otc] 20 mg PO TID #20 tablet. Referrals: [facility] [Provider Group] (In 1-2 days return for increasing worsening or new symptoms) Scribe Attestation: 11/19/16 12:44 I personally performed the services described in the documentation, reviewed and edited the documentation which was dictated to my scribe in my presence, and it accurately records my words and actions. (ALFIE MONTERO) Scribe Documentation - Scribe Written by Gabriel:: Gabriel Everett, 11/19/2016 1236 acting as scribe for :: Clarke <RATNA CHARLES - Last Filed: 11/19/16 13:42>
[2016-11-19 13:05] VITALS: BP 145/106
== END 2016-11-19 13:03 | disposition home or self-care (01) ==
LOC: ER 08:58
DX: R07.9 Chest pain, unspecified (principal); R10.9 Unspecified abdominal pain; F10.129 Alcohol abuse with intoxication, unspecified
CPT/HCPCS: 93005; 99285; 36415; 82553; 82550; 83690; 80307 ×2; 85025; 80053; 84484; 71020; 93010; J3490 ×3; J7120

== ENCOUNTER 2017-02-23 06:02 | Emergency (ER) | payer SELFPAY ==
[2017-02-23 07:03] LABS: ABSOLUTE EOSINOPHILS # (AUTO) 0.1 10^3/uL (0.0-0.6); ABSOLUTE LYMPHOCYTES (AUTO) 1.8 10^3/uL (0.5-4.7); ABSOLUTE MONOCYTES (AUTO) 0.6 10^3/uL (0.1-1.4); ABSOLUTE NEUT (AUTO) 5.4 10^3/uL (1.7-8.2); BASOPHILS % (AUTO) 0.4 % (0-2); EOSINOPHILS % (AUTO) 1.2 % (0-6); HEMATOCRIT 42.8 % (36.0-47.0); HEMOGLOBIN 14.7 g/dL (12.0-15.5); HGB HCT DIFFERENCE 1.3; LYMPHOCYTES % (AUTO) 22.9 % (13-45); MEAN CORPUSCULAR HEMOGLOBIN 32.2 pg (27.0-33.4); MEAN CORPUSCULAR HGB CONC 34.3 g/dL (32.0-36.0); MEAN CORPUSCULAR VOLUME 94 fl (80-97); MONOCYTES % (AUTO) 7.2 % (3-13); RED BLOOD COUNT 4.55 10^6/uL (3.72-5.28); RED CELL DISTRIBUTION WIDTH 14.3 % (11.5-14.0); SEGMENTED NEUTROPHILS % (AUTO) 68.3 % (42-78); WHITE BLOOD COUNT 7.9 10^3/uL (4.0-10.5)
[2017-02-23 07:15] LABS: ALANINE AMINOTRANSFERASE 20 U/L (9-52); ALBUMIN 4.3 g/dL (3.5-5.0); ALKALINE PHOSPHATASE 66 U/L (38-126); ANION GAP 15 (5-19); ASPARTATE AMINO TRANSFERASE 29 U/L (14-36); BILIRUBIN,DIRECT 0.6 mg/dL (0.0-0.4); BILIRUBIN,TOTAL 0.6 mg/dL (0.2-1.3); BLOOD UREA NITROGEN 12 mg/dL (7-20); CALCIUM 9.3 mg/dL (8.4-10.2); CARBON DIOXIDE 22 mmol/L (22-30); CHLORIDE 104 mmol/L (98-107); GLUCOSE 103 mg/dL (75-110); LIPASE 86.1 U/L (23-300); POTASSIUM 3.9 mmol/L (3.6-5.0); SODIUM 141.3 mmol/L (137-145); TOTAL PROTEIN 7.6 g/dL (6.3-8.2)
[2017-02-23] MEDS ORDERED: NORMAL SALINE 1000 ML 1,000 ML IV ONE (07:48)
[2017-02-23] MEDS ORDERED: ONDANSETRON HCL INJ/PF 4 MG/2 ML SDV IV ONE (07:50)
[2017-02-23] MEDS ORDERED: FAMOTIDINE INJ/PF 20 MG/2 ML SDV IV ONE (07:50)
--- NOTE | 2017-02-23 07:53 | ER Document Report ---
ED General - General Chief Complaint: Abdominal Pain Stated Complaint: ABDOMINAL PAIN Time Seen by Provider: 02/23/17 06:09 TRAVEL OUTSIDE OF THE [place] IN LAST 30 DAYS: No - HPI Patient complains to provider of: Epigastric abdominal pain Notes: Patient coming in complaining of epigastric abdominal pain started earlier today also complaining of vaginal bleeding started approximately 48 hours ago. Patient states she is unaware of her status but does not believe that she is . Patient denies any trauma patient states epigastric pain burning in nature. Denies any nausea vomiting fevers or chills. Denies any trauma. Patient is resting comfortably upon my evaluation. Patient initially denies any alcohol consumption patient denies distress upon my evaluation - Related Data Allergies/Adverse Reactions: banana [Banana] Allergy (Verified 11/19/16 09:08) latex [Latex] Allergy (Verified 11/19/16 09:08) peach [[place]] Allergy (Verified 11/19/16 09:08) strawberry [[place]] Allergy (Verified 11/19/16 09:08) Past Medical History - Social History Smoking Status: Unknown if Ever Smoked Family History: Arthritis, DM, Hypertension, Malignancy, Thyroid Disfunction - Past Medical History Cardiac Medical History: Reports: Hx Hypertension Pulmonary Medical History: Reports: Hx Asthma - as a child Renal/ Medical History: Reports: Hx Ovarian Cysts. Denies: Hx Peritoneal Dialysis GI Medical History: Denies: Hx Gastritis, Hx Gastroesophageal Reflux Disease, Hx Ulcer Musculoskeltal Medical History: Reports Hx Arthritis - right knee Past Surgical History: Reports: Hx Abdominal Surgery - GBP, Hx Gastric Bypass Surgery, Hx Oral Surgery - [place] teeth, Hx Umbilical Hernia - Immunizations Immunizations up to date: Yes Hx Diphtheria, Pertussis, Tetanus Vaccination: Yes Review of Systems - Review of Systems Constitutional: No symptoms reported EENT: No symptoms reported Cardiovascular: No symptoms reported Respiratory: No symptoms reported Gastrointestinal: Abdominal pain Genitourinary: No symptoms reported Female Genitourinary: No symptoms reported Musculoskeletal: No symptoms reported Skin: No symptoms reported Hematologic/Lymphatic: No symptoms reported Neurological/Psychological: No symptoms reported -: Yes All other systems reviewed and negative Physical Exam - Vital signs Vitals: Pulse Resp BP 95 16 122/78 02/23/17 06:08 02/23/17 06:08 02/23/17 06:08 Interpretation: Normal - General General appearance: Appears well, Alert - HEENT Head: Normocephalic, Atraumatic Eyes: Normal Pupils: PERRL - Respiratory Respiratory status: No respiratory distress Chest status: Nontender Breath sounds: Normal Chest palpation: Normal - Cardiovascular Rhythm: Regular Heart sounds: Normal auscultation Murmur: No - Abdominal Inspection: Normal Distension: No distension Bowel sounds: Normal Tenderness: Nontender Organomegaly: No organomegaly - Back Back: Normal, Nontender - Extremities General upper extremity: Normal inspection, Nontender, Normal color, Normal ROM , Normal temperature General lower extremity: Normal inspection, Nontender, Normal color, Normal ROM , Normal temperature, Normal weight bearing. No: Vikki's sign - Neurological Neuro grossly intact: Yes Cognition: Normal Orientation: AAOx4 [place] Coma Scale Eye Opening: Spontaneous [place] Coma Scale Verbal: Oriented [place] Coma Scale Motor: Obeys Commands [place] Coma Scale Total: 15 Speech: Normal Motor strength normal: LUE, RUE, LLE, RLE Sensory: Normal - Psychological Associated symptoms: Normal affect, Normal mood - Skin Skin Temperature: Warm Skin Moisture: Dry Skin Color: Normal Course - Re-evaluation Re-evalutation: 02/23/17 08:08 Lab work shows elevation in patient's serum alcohol. More likely epigastric abdominal pain the patient is complaining of is due to alcoholic gastritis. Patient was given Zofran and Pepcid IV fluids will be discharged home. - Vital Signs Vital signs: Temp Pulse Resp BP Pulse Ox 98.5 F 95 16 122/78 02/23/17 07:07 02/23/17 06:08 02/23/17 06:22 02/23/17 06:08 - Laboratory Result Diagrams: 02/23/17 06:30 02/23/17 06:30 Laboratory results interpreted by me: 02/23/17 02/23/17 06:30 06:30 RDW 14.3 H Direct Bilirubin 0.6 H Discharge - Discharge Clinical Impression: Vaginal bleeding Acute alcohol intoxication Qualifiers: Complication of substance-induced condition: uncomplicated Qualified Code(s): F10.929 - Alcohol use, unspecified with intoxication, unspecified Abdominal pain Qualifiers: Abdominal location: unspecified location Qualified Code(s): R10.9 - Unspecified abdominal pain Condition: Good Disposition: HOME, SELF-CARE Instructions: Abdominal Pain ([facility]), Acute Alcohol Intoxication ([facility]), Vaginal Bleeding ([facility]) Additional Instructions: Follow-up with your primary care physician. Take medication as prescribed for your abdominal pain. Return to the ER symptoms worsen. Prescriptions: Omeprazole 20 mg PO DAILY #30 capsule.dr Forms: Return to Work Referrals: MAYRA SALINAS MD [Primary Care Provider] - Follow up as needed
[2017-02-23 09:08] VITALS: BP 117/55
== END 2017-02-23 09:00 | disposition home or self-care (01) ==
LOC: ER 06:02
DX: R10.13 Epigastric pain (principal); N93.8 Other specified abnormal uterine and vaginal bleeding; F10.929 Alcohol use, unspecified with intoxication, unspecified; I10 Essential (primary) hypertension; Z98.84 Bariatric surgery status; Z91.040 Latex allergy status
CPT/HCPCS: 99284; 96361; 96374; 96375; 36415; 80307; 84702; 83690; 85025; 80053; J2405; J7030; S0028

== ENCOUNTER 2017-02-27 09:11 | Emergency (ER) | payer SELFPAY ==
--- NOTE | 2017-02-27 09:51 | ER Document Report ---
ED General - General Chief Complaint: Knee Pain Stated Complaint: RIGHT KNEE PAIN, SWELLING Time Seen by Provider: 02/27/17 09:48 Mode of Arrival: Ambulatory Information source: Patient Notes: Patient is a 31-year-old female presents with right knee pain and swelling that started approximately 3 weeks ago. 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 She reports a history of injury and torn meniscus to that knee that she has been working with orthopedics to get a surgery scheduled. She denies any fever, chills, redness, swelling, bruising, deformity. She states pain is worse with ambulation or after keeping her leg extended for a long period of time. She states she has tried Tylenol, ibuprofen, Aleve, Zonia aspirin with no relief of pain. She states the only relief of pain she gets is when she sits in her Jacuzzi hot tub. TRAVEL OUTSIDE OF THE [place] IN LAST 30 DAYS: No - Related Data Allergies/Adverse Reactions: banana [Banana] Allergy (Verified 11/19/16 09:08) latex [Latex] Allergy (Verified 11/19/16 09:08) peach [[place]] Allergy (Verified 11/19/16 09:08) strawberry [[place]] Allergy (Verified 11/19/16 09:08) Past Medical History - General Information source: Patient - Social History Smoking Status: Unknown if Ever Smoked Family History: Arthritis, DM, Hypertension, Malignancy, Thyroid Disfunction - Past Medical History Cardiac Medical History: Reports: Hx Hypertension Pulmonary Medical History: Reports: Hx Asthma - as a child Renal/ Medical History: Reports: Hx Ovarian Cysts. Denies: Hx Peritoneal Dialysis GI Medical History: Denies: Hx Gastritis, Hx Gastroesophageal Reflux Disease, Hx Ulcer Musculoskeltal Medical History: Reports Hx Arthritis - right knee Past Surgical History: Reports: Hx Abdominal Surgery - GBP, Hx Gastric Bypass Surgery, Hx Oral Surgery - [place] teeth, Hx Umbilical Hernia - Immunizations Immunizations up to date: Yes Hx Diphtheria, Pertussis, Tetanus Vaccination: Yes Review of Systems - Review of Systems Constitutional: See HPI EENT: No symptoms reported Cardiovascular: No symptoms reported Respiratory: No symptoms reported Gastrointestinal: No symptoms reported Genitourinary: No symptoms reported Female Genitourinary: No symptoms reported Musculoskeletal: See HPI Skin: No symptoms reported Hematologic/Lymphatic: No symptoms reported Neurological/Psychological: No symptoms reported Physical Exam - Vital signs Vitals: Temp Pulse Resp BP Pulse Ox 98.5 F 81 16 133/91 H 99 02/27/17 09:20 02/27/17 09:20 02/27/17 09:20 02/27/17 09:20 02/27/17 09:20 Interpretation: Hypertensive - Notes Notes: PHYSICAL EXAM: CONSTITUTIONAL: Alert and oriented, well-appearing and in no acute distress. HENT: Normocephalic, atraumatic. Moist mucous membranes. EYES: Pupils equal round and reactive to light, EOM intact. Sclera anicteric, conjunctiva are normal. No entrapment. HEART: Regular rate and rhythm without murmurs. LUNGS: CTAB and equal. No wheezes, rales or rhonchi. BACK: nontender, no paraspinous spasm, 5+/5 strengths, DTRs 2+, SLR -. EXTREMITIES: Right knee - tender to palpation along patellar-femoral tendon and popliteal fossa with mild edema to knee. No effusion, ecchymosis, erythema, warmth or deformity. ROM limited 2/2 pain. No pitting edema. No cyanosis. Cap Refill <3 seconds. NEURO: Cranial nerves grossly intact. Normal sensory/motor exams. PSYCH: Normal mood, normal affect. SKIN: Warm and dry. Normal turgor. No rashes or lesions noted. Course - Re-evaluation Re-evalutation: 02/27/17 09:50 Patient seen and examined. No obvious deformities or laxity. Neurovascular intact. Will get xrays and given IM toradol for pain. 02/27/17 10:45 Reviewed xray - mod joint effusion without acute fracture. Will give knee immobilizer/crutches and advised f/u with orthopedics in next 1-2 days. Given script for pain medication. At this time, will discharge with return precautions and follow-up recommendations. Verbal discharge instructions given at the bedside and opportunity for questions given. Medication warnings reviewed. Patient is in agreement with this plan and has verbalized understanding of return precautions and the need for primary care follow-up in the next 24-72 hours. - Vital Signs Vital signs: Temp Pulse Resp BP Pulse Ox 98.5 F 81 16 133/91 H 99 02/27/17 09:20 02/27/17 09:20 02/27/17 09:20 02/27/17 09:20 02/27/17 09:20 - Diagnostic Test Radiology reviewed: Image reviewed, Reports reviewed Discharge - Discharge Clinical Impression: Knee effusion, right Fall, accidental Qualifiers: Encounter type: initial encounter Qualified Code(s): W19.XXXA - Unspecified fall, initial encounter Right knee pain Qualifiers: Chronicity: acute Qualified Code(s): M25.561 - Pain in right knee Condition: Stable Disposition: HOME, SELF-CARE Instructions: Knee Immobilizing Splint ([facility]), Use of Crutches ([facility]), Suspected Internal Knee Injury ([facility]) Additional Instructions: We recommend that you follow-up with orthopedic surgery. Wear knee immobilizer and use crutches until otherwise instructed by them. You most likely will need MRI and they can schedule that as an outpatient. Anti-Inflammatory Medication You have received a prescription for an antiinflammatory agent. This is an excellent, safe drug for pain control. In addition, it has potent antiinflammatory effects which are beneficial, especially in the treatment of injuries, arthritis, or tendonitis. It's best to take this medicine with food. Persons with ulcer disease or allergy to aspirin should notify their physician of this before taking this drug. Take the medication exactly as prescribed. Don't take additional doses unless instructed to do so by your doctor. If you develop wheezing, shortness of breath, hives, faintness, stomach pain, vomiting, or dark black stools, return for re-evaluation at once. Knee Immobilizing Splint The knee immobilizing splint will protect the injury while healing begins. This type of splint does not allow the knee to bend at all. No running or sports will be possible. If the splint allows painfree walking, it's giving adequate protection. If there is still significant pain, crutches may be needed as well. Don't do anything that hurts. Adjusted the splint, if necessary. The stiffeners on the sides are attached with Velcro, so they can be easily moved to adjust for thigh and calf size. If you need help with these adjustments, come back. You will lose muscle strength in the thigh while using this splint. The doctor will advise you if it's safe to do isometric knee exercises while you use it. Oral Narcotic Medication You have been given a prescription for pain control. This medication is a narcotic. It's best taken with food, as nausea can result if taken on an empty stomach. Don't operate machinery or drive within six hours of taking this medication. Do not combine this medicine with alcohol, or with any medication which can cause sedation (such as cold tablets or sleeping pills) unless you get permission from the physician. Narcotics tend to cause constipation. If possible, drink plenty of fluids and eat a diet high in fiber and fruits. Follow up with the provider of your choice as soon as possible. Prescriptions: Ketorolac Tromethamine [Toradol 10 mg Tablet] 10 mg PO Q8HP PRN #20 tablet PRN Reason: Hydrocodone/Acetaminophen [Vicodin 5-300 mg Tablet] 1 tab PO ASDIR PRN #10 tab PRN Reason: Forms: Elevated Blood Pressure
[2017-02-27] MEDS ORDERED: KETOROLAC TROMETHAMINE 60 MG/2 ML SDV IM ONE (09:56)
--- NOTE | 2017-02-27 10:22 | RADIOLOGY REPORT (SQ) ---
EXAM DESCRIPTION: KNEE RIGHT 4 VIEWS COMPLETED DATE/TIME: 02/27/2017 10:12 am REASON FOR STUDY: pain, swelling, s/p fall COMPARISON: 05/16/2016 NUMBER OF VIEWS: Four views. TECHNIQUE: AP, lateral, and both oblique radiographic images acquired of the right knee. LIMITATIONS: None. FINDINGS: MINERALIZATION: Normal. BONES: No acute fracture or dislocation. No worrisome bone lesions. JOINT: Medial and lateral joint spaces are well maintained. There are tiny posterior spurs on the pa tella. There is a moderate joint effusion. SOFT TISSUES: No soft tissue swelling. No radio-opaque foreign body. OTHER: No other significant finding. IMPRESSION: Mild patellofemoral degenerative joint disease with a joint effusion. If there is clini arnoldo concern for internal derangement, consider MRI. TECHNICAL DOCUMENTATION: JOB ID: [id number] [employer]- All Rights Reserved
[2017-02-27 11:09] VITALS: BP 142/96
== END 2017-02-27 11:14 | disposition home or self-care (01) ==
LOC: ER 09:11
DX: M25.461 Effusion, right knee (principal); M25.561 Pain in right knee; W01.10XA Fall on same level from slipping, tripping and stumbling with subsequent striking against unspecified object, initial encounter; I10 Essential (primary) hypertension; Z91.040 Latex allergy status; Z91.018 Allergy to other foods; Z98.84 Bariatric surgery status
CPT/HCPCS: 99283; 96372; 73564; L1830; J1885

== ENCOUNTER 2017-04-30 21:02 | Emergency (ER) | payer SELFPAY ==
[2017-04-30 21:19] VITALS: BP 142/82
[2017-04-30] MEDS ORDERED: OXYCODONE-ACETAMINOPHEN 5-325 MG TABLET PO ONE (23:44)
--- NOTE | 2017-04-30 23:46 | ER Document Report ---
ED General - General Chief Complaint: Knee Pain Stated Complaint: KNEE PAIN,VAGINAL DISCOMFORT Time Seen by Provider: 04/30/17 23:33 Notes: Patient is a 31-year-old female comes emergency department for 2 complaints. First complaint is she fell and landed on her right knee, she has already been scheduled for surgery next month after previous knee injury and torn meniscus, she reports it is difficult to stand or walk on the knee. She fell on the knee one week ago approximately but states it has not improved. Second complaint is lower abdominal cramping and dysuria with concern for possible STD. Denies fever, vaginal bleeding, flank pain, vomiting. Past medical history of gastric bypass. TRAVEL OUTSIDE OF THE [place] IN LAST 30 DAYS: No - Related Data Allergies/Adverse Reactions: banana [Banana] Allergy (Verified 04/30/17 21:16) latex [Latex] Allergy (Verified 04/30/17 21:16) peach [[place]] Allergy (Verified 04/30/17 21:16) strawberry [[place]] Allergy (Verified 04/30/17 21:16) Past Medical History - General Information source: Patient - Social History Smoking Status: Never Smoker Drug Abuse: None Lives with: Family Family History: Arthritis, DM, Hypertension, Malignancy, Thyroid Disfunction Patient has suicidal ideation: No Patient has homicidal ideation: No - Past Medical History Cardiac Medical History: Reports: Hx Hypertension Pulmonary Medical History: Reports: Hx Asthma - as a child Renal/ Medical History: Reports: Hx Ovarian Cysts. Denies: Hx Peritoneal Dialysis GI Medical History: Denies: Hx Gastritis, Hx Gastroesophageal Reflux Disease, Hx Ulcer Musculoskeltal Medical History: Reports Hx Arthritis - right knee Past Surgical History: Reports: Hx Abdominal Surgery - GBP, Hx Gastric Bypass Surgery, Hx Oral Surgery - [place] teeth, Hx Umbilical Hernia - Immunizations Immunizations up to date: Yes Hx Diphtheria, Pertussis, Tetanus Vaccination: Yes Review of Systems - Review of Systems Constitutional: No symptoms reported EENT: No symptoms reported Cardiovascular: No symptoms reported Respiratory: No symptoms reported Gastrointestinal: See HPI Genitourinary: See HPI Female Genitourinary: See HPI Musculoskeletal: See HPI Skin: No symptoms reported Hematologic/Lymphatic: No symptoms reported Neurological/Psychological: No symptoms reported Physical Exam - Vital signs Vitals: Temp Pulse Resp BP Pulse Ox 98.5 F 91 18 142/82 H 98 04/30/17 21:17 04/30/17 21:17 04/30/17 21:17 04/30/17 21:17 04/30/17 21:17 Interpretation: Normal - General General appearance: Appears well, Alert In distress: None - HEENT Head: Normocephalic, Atraumatic Eyes: Normal Conjunctiva: Normal Extraocular movements intact: Yes Eyelashes: Normal Pupils: PERRL - Respiratory Respiratory status: No respiratory distress Chest status: Nontender Breath sounds: Normal Chest palpation: Normal - Cardiovascular Rhythm: Regular Heart sounds: Normal auscultation Murmur: No - Abdominal Inspection: Normal Distension: No distension Bowel sounds: Normal Tenderness: Tender - Minimal tenderness in the lower abdomen on both sides, nonspecific, no guarding Organomegaly: No organomegaly - Genitourinary External exam: Normal Speculum exam: Cervix closed, Vaginal discharge - Moderate amount of yellowish whitish vaginal discharge. No: Cervix open Vaginal bleeding: None Notes: PCT Piper at bedside during exam. - Back Back: Normal, Nontender. No: Tender - Extremities General upper extremity: Normal inspection, Nontender, Normal color, Normal ROM , Normal temperature General lower extremity: Other - Right knee with normal range of motion, no swelling, no areas of tenderness noted, normal leg examination otherwise. - Neurological Neuro grossly intact: Yes Cognition: Normal Orientation: AAOx4 [place] Coma Scale Eye Opening: Spontaneous [place] Coma Scale Verbal: Oriented [place] Coma Scale Motor: Obeys Commands [place] Coma Scale Total: 15 Speech: Normal Motor strength normal: LUE, RUE, LLE, RLE Sensory: Normal - Psychological Associated symptoms: Normal affect, Normal mood - Skin Skin Temperature: Warm Skin Moisture: Dry Skin Color: Normal Course - Re-evaluation Re-evalutation: The examination shows no signs of trauma over the knee, full range of motion present, no obvious tenderness or swelling. She complains when walking on the knee but does so without any difficulty. X-ray shows no acute abnormality including no fracture, dislocation, avulsion fracture, or effusion. Pelvic examination showing vaginal discharge consistent with bacterial vaginosis , patient will be covered for STDs, discussed this with patient, patient will to be treated with Keflex for urinary tract infection and Flagyl for bacterial vaginosis. Discussed follow-up recommendations, return precautions, patient states satisfaction and agreement. Gonorrhea and Chlamydia are both negative. Patient informed. - Vital Signs Vital signs: Temp Pulse Resp BP Pulse Ox 98.5 F 91 18 142/82 H 98 04/30/17 21:17 04/30/17 21:17 04/30/17 21:17 04/30/17 21:17 04/30/17 21:17 - Laboratory Laboratory results interpreted by me: 05/01/17 01:27 Urine Ketones TRACE H Urine Blood SMALL H Urine Urobilinogen 2.0 H Ur Leukocyte Esterase MODERATE H - Diagnostic Test Radiology reviewed: Image reviewed, Reports reviewed Discharge - Discharge Clinical Impression: Pelvic pain, Dysuria Right knee pain Qualifiers: Chronicity: acute Qualified Code(s): M25.561 - Pain in right knee Condition: Stable Disposition: HOME, SELF-CARE Additional Instructions: Your workup indicates a urinary tract infection and pelvic infection. You have begun treatment for these, continue prescriptions to completion. Your examination of the knee is nonspecific, your x-ray shows some degenerative joint changes but no specific abnormalities including no fractures or fluid in the knee joint (effusion). Elevate your knee, apply ice to the area 3 times daily, wear the knee immobilizer, take [id number] anti-inflammatory (with antacid therapy such as Pepcid), follow up with your Orthopedic surgeon. Return the emergency department for any concerning or worsening symptoms including vomiting, fever, redness/swelling of the knee, or any other concerning symptoms. Prescriptions: Cephalexin Monohydrate [Keflex 500 mg Capsule] 500 mg PO BID #10 capsule Metronidazole [Flagyl 500 mg Tablet] 500 mg PO BID #14 tablet Referrals: DEVIKA PEREZ DO [Primary Care Provider] - Follow up as needed
--- NOTE | 2017-05-01 01:04 | RADIOLOGY REPORT (SQ) ---
EXAM DESCRIPTION: KNEE RIGHT 4 VIEWS CLINICAL HISTORY: pain, fell on knee COMPARISON: 02/27/2017 FINDINGS: 4 views of the right knee. No acute fracture or dislocation. Mild medial compartment and patellofemoral compartment joint space narrowing. Normal osseous mineralization. No definite joint effusion. IMPRESSION: 1. No acute fracture or dislocation.
[2017-05-01 01:49] LABS: APPEARANCE,URINE SLIGHTLY-CLOUDY; BILIRUBIN,URINE NEGATIVE (NEGATIVE); GLUCOSE, URINE NEGATIVE (NEGATIVE); KETONES,URINE TRACE mg/dL (NEGATIVE); LEUKOCYTE ESTERASE,URINE MODERATE (NEGATIVE); NITRITE,URINE NEGATIVE (NEGATIVE); PROTEIN,URINE NEGATIVE (NEGATIVE); URINE SPECIFIC GRAVITY 1.029
[2017-05-01] MEDS ORDERED: CEPHALEXIN 500 MG CAPSULE PO ONE (01:55)
[2017-05-01] MEDS ORDERED: LIDOCAINE 1% INJ-PF (10 MG/ML) 30 ML SDV INJ ONE (01:57)
[2017-05-01] MEDS ORDERED: HYDROCODONE/ACETAMINOPHEN 5-325 MG 6 TAB/DSPK PO PRN (01:57)
[2017-05-01] MEDS ORDERED: CEFTRIAXONE INJ 250 MG VIAL IM ONE (01:57)
[2017-05-01] MEDS ORDERED: AZITHROMYCIN 250 MG TABLET PO ONE (01:58)
[2017-05-01 03:10] LABS: CHLAM PCR NOT DETECTED (NOT DETECT)
== END 2017-05-01 02:38 | disposition home or self-care (01) ==
LOC: ER 21:02
DX: R10.2 Pelvic and perineal pain (principal); R30.0 Dysuria; M25.561 Pain in right knee; W19.XXXA Unspecified fall, initial encounter
CPT/HCPCS: 99284; 96372; 87210; 81025; 81001; 87491; 87591; 73564; J3490; J0696

== ENCOUNTER 2017-07-01 10:32 | Emergency (ER) | payer SELFPAY ==
--- NOTE | 2017-07-01 12:05 | RADIOLOGY REPORT (SQ) ---
EXAM DESCRIPTION: KNEE RIGHT 4 VIEWS COMPLETED DATE/TIME: 07/01/2017 11:53 am REASON FOR STUDY: right knee pain COMPARISON: Right knee films 05/01/2017, 02/27/2017, 01/04/2014 NUMBER OF VIEWS: Four views. TECHNIQUE: AP, lateral, and both oblique radiographic images acquired of the right knee. LIMITATIONS: None. FINDINGS: MINERALIZATION: Normal. BONES: No acute fracture or malalignment. There is minimal bony spurring along the anterior aspect o f the tibial spines. Question prior ACL injury. JOINT: Moderate suprapatellar knee joint effusion SOFT TISSUES: No soft tissue swelling. No radio-opaque foreign body. OTHER: No other significant finding. IMPRESSION: Suprapatellar knee joint effusion. Question internal derangement TECHNICAL DOCUMENTATION: JOB ID: [id number] [employer]- All Rights Reserved
--- NOTE | 2017-07-01 12:44 | ER Document Report ---
ED Extremity Problem, Lower - General Chief Complaint: Knee Pain Stated Complaint: RIGHT KNEE PAIN Time Seen by Provider: 07/01/17 12:12 Mode of Arrival: Ambulatory Information source: Patient Notes: 31-year-old female presents to ED for right knee pain locking up, vaginal discharge. She states that the knee has been injured for 3 years a year ago became more painful 3 months ago she fell and then again she fell 2 weeks ago she said she has been to the orthopedic and they told her she had a torn meniscus and she was scheduled to have surgery on Friday but she had to cancel that due to a family emergency and has to schedule her surgery. She states she is also had vaginal discharge for several weeks but is now become yellow. States she has a history of PID in the past. TRAVEL OUTSIDE OF THE [place] IN LAST 30 DAYS: No - HPI Patient complains to provider of: Injury - Injury 2 weeks ago multiple injuries , Pain, Swelling Location: Knee - right knee Occurred: Other - 3 years fell again 3 months ago and again 2 weeks ago Where: Other - Multiple places Onset/Duration: Intermittent Quality of pain: Achy, Sharp Severity: Moderate Pain Level: 3 Context: Fell, Other - Addendum orthopedics no she needs scars surgery had it scheduled for Friday but will be out of town so she has to reschedule it. Recent injury: Possibly Associated symptoms: Painful ambulation Exacerbated by: Hanging down, Movement, Walking Relieved by: Elevation, Ice, Rest - Related Data Allergies/Adverse Reactions: banana [Banana] Allergy (Verified 07/01/17 12:32) latex [Latex] Allergy (Verified 07/01/17 12:32) peach [[place]] Allergy (Verified 07/01/17 12:32) strawberry [[place]] Allergy (Verified 07/01/17 12:32) Past Medical History - General Information source: Patient - Social History Smoking Status: Never Smoker Cigarette use (# per day): No Chew tobacco use (# tins/day): No Smoking Education Provided: No Frequency of alcohol use: None Drug Abuse: None Lives with: Spouse/Significant other Family History: Arthritis, DM, Hypertension, Malignancy, Thyroid Disfunction. 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 Renal/ Medical History: Reports: Hx Ovarian Cysts Malignancy Medical History: Reports: None GI Medical History: Reports: Hx Endoscopy Musculoskeltal Medical History: Reports Hx Arthritis - right knee, Reports Hx Musculoskeletal Deformity, Reports Hx Musculoskeletal Trauma Skin Medical History: Reports None Psychiatric Medical History: Reports: None Traumatic Medical History: Reports: None Infectious Medical History: Reports: None Past Surgical History: Reports: Hx Gastric Bypass Surgery, Hx Oral Surgery - [place] teeth, Hx Umbilical Hernia, Other - Multiple cyst removed superficial - Immunizations Immunizations up to date: Yes Hx Diphtheria, Pertussis, Tetanus Vaccination: Yes Review of Systems - Review of Systems Constitutional: No symptoms reported EENT: No symptoms reported Cardiovascular: No symptoms reported Respiratory: No symptoms reported Gastrointestinal: No symptoms reported Genitourinary: No symptoms reported Female Genitourinary: Vaginal discharge, Vaginal odor Musculoskeletal: Joint pain, Muscle pain - Right knee, Muscle stiffness Skin: No symptoms reported Hematologic/Lymphatic: No symptoms reported Neurological/Psychological: No symptoms reported -: Yes All other systems reviewed and negative Physical Exam - Vital signs Vitals: Temp Pulse Resp BP Pulse Ox 98.9 F 91 20 154/98 H 99 07/01/17 10:44 07/01/17 10:44 07/01/17 10:44 07/01/17 10:44 07/01/17 10:44 Interpretation: Normal - General General appearance: Appears well, Alert - HEENT Head: Normocephalic, Atraumatic Eyes: Normal Pupils: PERRL - Respiratory Respiratory status: No respiratory distress Chest status: Nontender Breath sounds: Normal Chest palpation: Normal - Cardiovascular Rhythm: Regular Heart sounds: Normal auscultation Murmur: No - Abdominal Inspection: Normal Distension: No distension Bowel sounds: Normal Tenderness: Nontender Organomegaly: No organomegaly - Genitourinary External exam: Normal, Other - Patient has some mild white odorous discharge. Patient self swabbed as she was not having any pelvic pain just the discharge. Bimanuel exam: No: Adnexal tenderness - Back Back: Normal, Nontender - Extremities General upper extremity: Normal inspection, Nontender, Normal color, Normal ROM , Normal temperature General lower extremity: Normal color, Normal temperature, Normal weight bearing. No: Normal inspection, Nontender, Tender, Edema, Normal ROM, Normal strength, Vikki's sign, Other Hip: Normal, Nontender Thigh: Normal, Nontender Knee: Tender, Joint effusion, Laxity with varus stress, Pain with ROM, Patellar tendon intact, Tender joint line. No: Abrasion, Deformity, Dislocation, Drawer' s test instability, Ecchymosis, Laceration, Laxity with valgus stress, Popliteal fossa tender, Unable to bear weight Calf: Normal, Nontender Ankle: Normal, Nontender Foot: Normal, Nontender - Neurological Neuro grossly intact: Yes Cognition: Normal Orientation: AAOx4 [place] Coma Scale Eye Opening: Spontaneous [place] Coma Scale Verbal: Oriented [place] Coma Scale Motor: Obeys Commands [place] Coma Scale Total: 15 Speech: Normal Motor strength normal: LUE, RUE, LLE, RLE Sensory: Normal - Psychological Associated symptoms: Normal affect, Normal mood - Skin Skin Temperature: Warm Skin Moisture: Dry Skin Color: Normal Course - Re-evaluation Re-evalutation: 07/01/17 21:01 X-ray discussed with patient and written report given to her before she was discharged. Patient was also given instructions on use in her knee immobilizer she has at home and so she can get her hinged knee brace. Patient also to use the crutches she has at home. She had surgery scheduled for next week but is some type of emergency so she is not going to do it and needs to reschedule it. Patient told that she needs to reschedule it sooner not later. - Vital Signs Vital signs: Temp Pulse Resp BP Pulse Ox 97.7 F 78 20 149/99 H 100 07/01/17 14:18 07/01/17 14:18 07/01/17 10:44 07/01/17 14:18 07/01/17 14:18 - Laboratory Laboratory results interpreted by me: 07/01/17 12:31 Urine Blood SMALL H Urine Urobilinogen 2.0 H Ur Leukocyte Esterase TRACE H - Diagnostic Test Radiology reviewed: Image reviewed, Reports reviewed Discharge - Discharge Clinical Impression: Chronic pain of right knee, Bacterial vaginosis Vaginitis Qualifiers: Chronicity: acute Qualified Code(s): N76.0 - Acute vaginitis HTN (hypertension) Qualifiers: Hypertension type: unspecified Qualified Code(s): I10 - Essential (primary) hypertension Condition: Stable Disposition: HOME, SELF-CARE Additional Instructions: VAGINITIS: Your exam shows that you have vaginitis, a vaginal infection. The infection can be caused by a many different organisms, including trichomonas or Gardnerella. The usual symptoms are vaginal irritation and discharge. The treatment is usually antibiotics such as Flagyl. Laboratory tests can determine which germ is responsible. Use the medication as prescribed. Because this infection can be transmitted sexually, your sexual partner may need to be checked and treated also. If your physician has not discussed this with you, please check before resuming sexual relations. If a culture shows gonorrhea or chlamydia, the infection must be reported to the health department. Call the doctor if you develop pelvic pain, fever, or problems with urination, or if you don't improve as expected. VAGINOSIS, BACTERIAL: Your exam shows you have bacterial vaginosis. This condition is due to an overgrowth of bacteria in the vagina. Symptoms may include vaginal itching or pain, a smelly discharge, and sometimes burning with urination. Normally this is not transmitted by sexual contact. Vaginosis can be treated with oral or topical antibiotics. Metronidazole ( Flagyl) pills are usually effective. Topical vaginal creams include Cleocin and Metro-Gel. You should avoid sexual contact until your symptoms are all better. Call the doctor if you develop pelvic pain, fever, or problems with urination, or if you don't improve as expected. CEPHALOSPORINS: An antibiotic of the cephalosporin class has been prescribed. This type of antibiotic covers a wide variety of infections, including those of the skin, lungs, middle ear, and urinary tract. This antibiotic is somewhat similar to the penicillin family. In rare cases , a person who is allergic to penicillin will also be allergic to this medication. If you have had a severe allergic reaction to penicillin, and have not taken this antibiotic since that time, notify your doctor. Antibiotics which cover many germs ("broad spectrum" antibiotics) are more likely to cause diarrhea or "yeast" infections. Women prone to vaginal yeast problems may suffer an attack after taking this antibiotic. In infants, oral thrush (white spots "stuck" on the cheek) or yeast diaper rash may result. See your doctor if these problems occur. Call the doctor at once if you develop hives, itching, shortness of breath , or lightheadedness. AZITHROMYCIN: Azithromycin (Zithromax) is a broad spectrum antibiotic in the same class as erythromycin. It can treat a variety of bacterial infections, but is most frequently used for respiratory infections. Azithromycin is extremely long-lasting. It accumulates in body tissues and continues to kill bacteria for many days. In order to improve absorption, Azithromycin should be taken at least one hour before or two hours after a meal. It does not have the same strong tendency to upset the stomach as erythromycin and is usually very well tolerated. Patients who have had a rash or other true allergic reactions to erythromycin should not take this medication. Call if you develop gastrointestinal distress, severe diarrhea, rash, hives, itching, or shortness of breath. METRONIDAZOLE: Metronidazole (Flagyl) has been prescribed. This medication is used to kill a type of bacteria called anaerobes, and protozoan parasites such as trichomonas and Giardia. Flagyl often causes a metallic taste in the mouth and mild nausea. Do not use alcohol in any form with Flagyl (including alcohol in medication elixirs). Flagyl interacts with alcohol to cause flushing, palpitations, headache, stomach cramps, and vomiting. Do not use Flagyl if you are taking Antabuse (disulfiram). Call the doctor at once if you develop rash, shortness of breath, itching, or lightheadedness. SUSPECTED INTERNAL KNEE INJURY: The examiner of your injured knee suspects an internal injury to the cartilage or internal ligaments. This must be further investigated by an orthopedic assistant. The knee should be protected, ice packed, and elevated while awaiting your follow-up exam by the orthopedist. If there is severe swelling, severe pain, or any new symptoms while awaiting your exam, you should call the orthopedist. (If he/she is unavailable, call us or return for re-examination.) KNEE IMMOBILIZING SPLINT: Wear your knee immobilizer until you can get your hinged knee brace The knee immobilizing splint will protect the injury while healing begins. This type of splint does not allow the knee to bend at all. No running or sports will be possible. If the splint allows painfree walking, it's giving adequate protection. If there is still significant pain, crutches may be needed as well. Don't do anything that hurts. Adjusted the splint, if necessary. The stiffeners on the sides are attached with Velcro, so they can be easily moved to adjust for thigh and calf size. If you need help with these adjustments, come back. You will lose muscle strength in the thigh while using this splint. The doctor will advise you if it's safe to do isometric knee exercises while you use it. USE OF CRUTCHES: You have crutches at home please use them and do not continue to put weight on your right knee until you are able to follow-up with orthopedics The doctor has recommended that you not bear weight at this time. You will need to use crutches. Adjust the crutches so the tops come to about two inches under the armpit while you are standing upright. Use your hands -- not your armpits -- to support your weight. To get into a chair, support yourself with one crutch on the injured side. Hold the chair with the other hand, then lower yourself while putting all your weight on the good leg. Going up stairs is `good leg up, step up, then bring up crutches and bad leg.' Down stairs is `bad leg and crutches down, then bring good leg down.' If you develop numbness or swelling in an arm or hand, you are using the crutches incorrectly. Return if you are having any problems with the crutches. ICE & ELEVATION: Apply ice packs frequently against the painful area. Many different schedules are recommended, such as "20 minutes on, 20 minutes off" or "one hour ice, two hours rest." If you need to work, you may need to go longer between ice treatments. You should plan to have the area ice packed AT LEAST one- fourth of the time. The ice should be applied over the wrap, tape, or splint, or over a layer of cloth -- not directly against the skin. Some ice bags have a built-in cloth and can be put directly on the skin. Your injured part should be elevated as much as possible over the next 48 hours. Try to keep the injury above the level of the heart. Avoid use of the injured area. Elevation and rest will decrease the swelling. Toradol Injection You have been given an injection of ketorolac tromethamine (Toradol). This is an excellent, safe drug for pain control. It also has potent antiinflammatory action. You should have significant pain relief within about one hour. Toradol is not addicting and is non-sedating. It does not interfere with driving or work. Call or return if you develop itching, hives, shortness of breath, or rash. FOLLOW-UP CARE: If you have been referred to a physician for follow-up care, call the physician s office for an appointment as you were instructed or within the next two days. If you experience worsening or a significant change in your symptoms, notify the physician immediately or return to the Emergency Department at any time for re-evaluation. Prescriptions: Metronidazole [Flagyl 500 mg Tablet] 500 mg PO BID #14 tablet Forms: Elevated Blood Pressure
[2017-07-01 12:56] LABS: BACTERIA (WET MOUNT) 3+ BACTERIA SEEN; EPITHELIALS (WET MOUNT) 3+ EPITHELIALS SEEN; RBCS (WET MOUNT) RARE RBCS SEEN; T.VAGINALIS (WET MOUNT) NO TRICHOMONAS SEEN; WBCS (WET MOUNT) 2+ WBCS SEEN; YEAST (WET MOUNT) NO YEAST SEEN
[2017-07-01 12:58] LABS: APPEARANCE,URINE CLEAR; BILIRUBIN,URINE NEGATIVE (NEGATIVE); COLOR,URINE YELLOW; GLUCOSE, URINE NEGATIVE (NEGATIVE); KETONES,URINE NEGATIVE (NEGATIVE); LEUKOCYTE ESTERASE,URINE TRACE (NEGATIVE); NITRITE,URINE NEGATIVE (NEGATIVE); PROTEIN,URINE NEGATIVE (NEGATIVE); URINE SPECIFIC GRAVITY 1.026
[2017-07-01] MEDS ORDERED: KETOROLAC TROMETHAMINE 60 MG/2 ML SDV IM ONE (13:01)
[2017-07-01] MEDS ORDERED: LIDOCAINE 1% INJ-PF (10 MG/ML) 30 ML SDV INJ ONE (13:33)
[2017-07-01] MEDS ORDERED: CEFTRIAXONE INJ 250 MG VIAL IM ONE (13:33)
[2017-07-01] MEDS ORDERED: AZITHROMYCIN 250 MG TABLET PO ONE (13:33)
[2017-07-01] MEDS ORDERED: METRONIDAZOLE 500 MG TABLET PO ONE (13:35)
[2017-07-01 14:20] VITALS: BP 149/99
[2017-07-01 14:24] LABS: CHLAM PCR NOT DETECTED (NOT DETECT); GON PCR NOT DETECTED (NOT DETECT)
== END 2017-07-01 14:20 | disposition home or self-care (01) ==
LOC: ER 10:32
DX: G89.29 Other chronic pain (principal); M25.561 Pain in right knee; S83.206A Unspecified tear of unspecified meniscus, current injury, right knee, initial encounter; W19.XXXA Unspecified fall, initial encounter; M25.461 Effusion, right knee; N76.0 Acute vaginitis; B96.89 Other specified bacterial agents as the cause of diseases classified elsewhere; I10 Essential (primary) hypertension; Z91.018 Allergy to other foods; Z91.040 Latex allergy status; J45.909 Unspecified asthma, uncomplicated; Z98.84 Bariatric surgery status
CPT/HCPCS: 99283; 96372; 87210; 81001; 87491; 87591; 73564; J1885; J3490; J0696

== ENCOUNTER 2017-12-23 10:21 | Emergency (ER) | payer SELFPAY ==
[2017-12-23] MEDS ORDERED: MORPHINE SULFATE 10 MG/ML INJ IV ONE (11:09)
[2017-12-23] MEDS ORDERED: ONDANSETRON 4 MG TAB.RAPDIS PO ONE (11:10)
--- NOTE | 2017-12-23 11:10 | ER Document Report ---
ED Medical Screen (RME) - General Chief Complaint: Lower Abdominal Pain Stated Complaint: ABDOMINAL PAIN Time Seen by Provider: 12/23/17 11:03 Notes: Patient is a 32-year-old female, past medical history gastric bypass 2008, presents with 2 days of worsening lower abdominal pain now worse in the right lower quadrant. She is also having some nausea and dysuria. PE: Uncomfortable. Tenderness over RLQ (limited exam due to RME chair). Normal bowel sounds. I have greeted and performed a rapid initial assessment of this patient. A comprehensive ED assessment and evaluation of the patient, analysis of test results and completion of the medical decision making process will be conducted by additional ED providers. TRAVEL OUTSIDE OF THE [place] IN LAST 30 DAYS: No - Related Data Allergies/Adverse Reactions: banana [Banana] Allergy (Verified 12/23/17 10:29) latex [Latex] Allergy (Verified 12/23/17 10:29) peach [[place]] Allergy (Verified 12/23/17 10:29) strawberry [[place]] Allergy (Verified 12/23/17 10:29) Past Medical History - Past Medical History Cardiac Medical History: Reports: Hx Hypertension Pulmonary Medical History: Reports: Hx Asthma - as a child Renal/ Medical History: Reports: Hx Ovarian Cysts. Denies: Hx Peritoneal Dialysis GI Medical History: Reports: Hx Endoscopy. Denies: Hx Gastritis, Hx Gastroesophageal Reflux Disease, Hx Ulcer Musculoskeltal Medical History: Reports Hx Arthritis - right knee, Reports Hx Musculoskeletal Deformity, Reports Hx Musculoskeletal Trauma Past Surgical History: Reports: Hx Abdominal Surgery - GBP, Hx Gastric Bypass Surgery, Hx Oral Surgery - [place] teeth, Hx Umbilical Hernia, Other - Multiple cyst removed superficial - Immunizations Immunizations up to date: Yes Hx Diphtheria, Pertussis, Tetanus Vaccination: Yes Physical Exam - Vital signs Vitals: Temp Pulse Resp BP Pulse Ox 99.2 F 97 18 148/95 H 100 12/23/17 10:12/23/17 10:12/23/17 10:12/23/17 10:12/23/17 10:26 Course - Vital Signs Vital signs: Temp Pulse Resp BP Pulse Ox 99.2 F 97 18 148/95 H 100 12/23/17 10:12/23/17 10:12/23/17 10:12/23/17 10:26 12/23/17 10:26
[2017-12-23 12:20] LABS: ABSOLUTE LYMPHOCYTES (AUTO) 0.7 10^3/uL (0.5-4.7); ABSOLUTE MONOCYTES (AUTO) 0.7 10^3/uL (0.1-1.4); ABSOLUTE NEUT (AUTO) 7.9 10^3/uL (1.7-8.2); BASOPHILS % (AUTO) 0.3 % (0-2); EOSINOPHILS % (AUTO) 0.1 % (0-6); HEMATOCRIT 40.6 % (36.0-47.0); HEMOGLOBIN 13.9 g/dL (12.0-15.5); LYMPHOCYTES % (AUTO) 7.2 % (13-45); MEAN CORPUSCULAR HEMOGLOBIN 32.4 pg (27.0-33.4); MEAN CORPUSCULAR HGB CONC 34.2 g/dL (32.0-36.0); MEAN CORPUSCULAR VOLUME 95 fl (80-97); MONOCYTES % (AUTO) 7.8 % (3-13); PLATELET COUNT 148 10^3/uL (150-450); RED BLOOD COUNT 4.29 10^6/uL (3.72-5.28); RED CELL DISTRIBUTION WIDTH 14.2 % (11.5-14.0); SEGMENTED NEUTROPHILS % (AUTO) 84.6 % (42-78); TOTAL CELLS COUNTED % (AUTO) 100 %; WHITE BLOOD COUNT 9.3 10^3/uL (4.0-10.5)
[2017-12-23 12:31] LABS: APPEARANCE,URINE SLIGHTLY-CLOUDY; BILIRUBIN,URINE NEGATIVE (NEGATIVE); COLOR,URINE YELLOW; GLUCOSE, URINE NEGATIVE (NEGATIVE); KETONES,URINE NEGATIVE (NEGATIVE); LEUKOCYTE ESTERASE,URINE LARGE (NEGATIVE); NITRITE,URINE NEGATIVE (NEGATIVE); PROTEIN,URINE 30 mg/dL (NEGATIVE); URINE SPECIFIC GRAVITY 1.006; UROBILINOGEN,URINE NEGATIVE mg/dL (<2.0)
[2017-12-23] MEDS ORDERED: FENTANYL CITRATE INJ/PF 100 MCG/2 ML AMPUL IV ONE (12:51)
--- NOTE | 2017-12-23 12:53 | ER Document Report ---
ED GI/ - General Chief Complaint: Lower Abdominal Pain Stated Complaint: ABDOMINAL PAIN Time Seen by Provider: 12/23/17 11:03 Mode of Arrival: Ambulatory Information source: Patient Notes: Patient is a 32-year-old female who presents to the ER today for 1 day of lower abdominal pain radiating into the right side of the back. Patient has no history of ovarian cysts, kidney stones, diverticulitis. She denies any dysuria , hematuria. She does admit to some chills but has not taken her temperature. Patient admits to nausea but no vomiting. TRAVEL OUTSIDE OF THE [place] IN LAST 30 DAYS: No - Related Data Allergies/Adverse Reactions: banana [Banana] Allergy (Verified 12/23/17 10:29) latex [Latex] Allergy (Verified 12/23/17 10:29) peach [[place]] Allergy (Verified 12/23/17 10:29) strawberry [[place]] Allergy (Verified 12/23/17 10:29) Past Medical History - General Information source: Patient - Social History Smoking Status: Current Some Day Smoker Chew tobacco use (# tins/day): No Frequency of alcohol use: Occasional Family History: Arthritis, DM, Hypertension, Malignancy, Thyroid Disfunction. denies: CAD, COPD, CVA, Hyperlipidemia Patient has suicidal ideation: No Patient has homicidal ideation: No - Past Medical History Cardiac Medical History: Reports: Hx Hypertension Pulmonary Medical History: Reports: Hx Asthma - as a child Renal/ Medical History: Reports: Hx Ovarian Cysts. Denies: Hx Peritoneal Dialysis GI Medical History: Reports: Hx Endoscopy. Denies: Hx Gastritis, Hx Gastroesophageal Reflux Disease, Hx Ulcer Musculoskeltal Medical History: Reports Hx Arthritis - right knee, Reports Hx Musculoskeletal Deformity, Reports Hx Musculoskeletal Trauma Past Surgical History: Reports: Hx Abdominal Surgery - GBP, Hx Gastric Bypass Surgery, Hx Oral Surgery - [place] teeth, Hx Umbilical Hernia, Other - Multiple cyst removed superficial - Immunizations Immunizations up to date: Yes Hx Diphtheria, Pertussis, Tetanus Vaccination: Yes Review of Systems - Review of Systems Constitutional: See HPI EENT: No symptoms reported Cardiovascular: No symptoms reported Respiratory: No symptoms reported Gastrointestinal: See HPI Genitourinary: No symptoms reported Female Genitourinary: No symptoms reported Musculoskeletal: No symptoms reported Skin: No symptoms reported Hematologic/Lymphatic: No symptoms reported Neurological/Psychological: No symptoms reported Physical Exam - Vital signs Vitals: Temp Pulse Resp BP Pulse Ox 99.2 F 97 18 148/95 H 100 12/23/17 10:26 12/23/17 10:26 12/23/17 10:26 12/23/17 10:26 12/23/17 10:26 - Notes Notes: PHYSICAL EXAMINATION: GENERAL: Uncomfortable appearing, but in no acute distress. HEAD: Atraumatic, normocephalic. EYES: Pupils equal round and reactive to light, extraocular movements intact, sclera anicteric, conjunctiva are normal. ENT: ear canals without erythema or foreign body, TMs pearly salas with good bony landmarks, nares patent, oropharynx clear without exudates. Moist mucous membranes. NECK: Normal range of motion, supple without lymphadenopathy LUNGS: CTAB and equal. No wheezes rales or rhonchi. HEART: Regular rate and rhythm without murmurs ABDOMEN: Soft, mild diffuse tenderness. No guarding, no rebound BACK: no vertebral tenderness, normal ROM GI/: no CVA tenderness EXTREMITIES: Normal range of motion, no pitting edema. No cyanosis. NEUROLOGICAL: Cranial nerves grossly intact. Normal sensory/motor exams. PSYCH: Normal mood, normal affect. SKIN: Warm, Dry, normal turgor, no rashes or lesions noted Course - Re-evaluation Re-evalutation: 12/23/17 12:52 During my physical exam and taking of the history in the room with her although she is holding her lower abdomen and wincing in pain occasionally she is also asking me questions about douching, which "pain medicine is stronger than another" and asking for something stronger than morphine, she is also asking me to look at the scratch on her 's back, and multiple other random medical questions. We will go forward with the CAT scan to rule out appendicitis that was ordered in triage although patient has 92 white blood cells and leukocytes on urinalysis. 12/23/17 18:45 CT with IV and oral contrast of the abdomen and pelvis negative for any acute pathology. Normal appendix. - Vital Signs Vital signs: Temp Pulse Resp BP Pulse Ox 100.5 F H 91 16 133/74 H 100 12/23/17 16:59 12/23/17 16:59 12/23/17 16:59 12/23/17 16:59 12/23/17 16:59 - Laboratory Result Diagrams: 12/23/17 11:26 12/23/17 11:26 Laboratory results interpreted by me: 12/23/17 12/23/17 11:26 11:26 RDW 14.2 H Plt Count 148 L Seg Neutrophils % 84.6 H Lymphocytes % 7.2 L Urine Protein 30 H Urine Blood SMALL H Ur Leukocyte Esterase LARGE H Discharge - Discharge Clinical Impression: UTI (urinary tract infection) Qualifiers: Urinary tract infection type: site unspecified Hematuria presence: with hematuria Qualified Code(s): N39.0 - Urinary tract infection, site not specified Condition: Stable Disposition: HOME, SELF-CARE Instructions: Urinary Tract Infection ([facility]) Additional Instructions: Return immediately for any new or worsening symptoms. Follow up with primary care provider, call tomorrow to make followup appointment. Drink plenty of fluids. Prescriptions: Ciprofloxacin HCl [Cipro 500 mg Tablet] 500 mg PO BID #14 tablet Ibuprofen [Motrin 800 mg Tablet] 800 mg PO Q8H PRN #30 tab PRN Reason:
[2017-12-23 13:12] LABS: ALANINE AMINOTRANSFERASE 22 U/L (9-52); ALBUMIN 3.9 g/dL (3.5-5.0); ALKALINE PHOSPHATASE 65 U/L (38-126); ANION GAP 12 (5-19); ASPARTATE AMINO TRANSFERASE 29 U/L (14-36); BILIRUBIN,DIRECT 0.4 mg/dL (0.0-0.4); BLOOD UREA NITROGEN 7 mg/dL (7-20); CALCIUM 9.1 mg/dL (8.4-10.2); CARBON DIOXIDE 28 mmol/L (22-30); CHLORIDE 102 mmol/L (98-107); GLUCOSE 102 mg/dL (75-110); LIPASE 25.8 U/L (23-300); POTASSIUM 3.9 mmol/L (3.6-5.0); SODIUM 141.5 mmol/L (137-145); TOTAL PROTEIN 7.5 g/dL (6.3-8.2)
[2017-12-23] MEDS ORDERED: CEFTRIAXONE INJ 1000 MG VIAL IV ONE (14:14)
--- NOTE | 2017-12-23 15:02 | RADIOLOGY REPORT (SQ) ---
EXAM DESCRIPTION: CT ABD/PELVIS WITH IV ORAL COMPLETED DATE/TIME: 12/23/2017 2:46 pm REASON FOR STUDY: RLQ tenderness, Hx gastric bypass COMPARISON: Abdominal ultrasound 10/09/2016 CT abdomen pelvis 10/09/2016 TECHNIQUE: CT scan of the abdomen and pelvis performed using helical scanning technique with dynamic intravenous contrast injection. Patient drank oral contrast. Images reviewed with lung, soft tissue , and bone windows. Reconstructed coronal and sagittal MPR images reviewed. Delayed images for evalua tion of the urinary system also acquired. All images stored on PACS. All CT scanners at this facility use dose modulation, iterative reconstruction, and/or weight based d osing when appropriate to reduce radiation dose to as low as reasonably achievable (ALARA). [facility]: Dose Right [facility]: CareDose [facility]: Dose Right [facility]: Teradose 4D [facility]: [employer] CONTRAST TYPE AND DOSE: contrast/concentration: Isovue 370.00 mg/ml; Total Contrast Delivered: 100.0 ml; Total Saline Delivered: 47.5 ml RENAL FUNCTION: Creatinine 0.76 RADIATION DOSE: CT Rad equipment meets quality standard of care and radiation dose reduction techniq ues were employed. CTDIvol: 14.7 - 18.8 mGy. DLP: 1842 mGy-cm.. LIMITATIONS: None. FINDINGS: LOWER CHEST: No significant findings. No nodules or infiltrates. LIVER: Normal size. No masses. No dilated ducts. Diffuse fatty infiltration SPLEEN: Normal size. No focal lesions. PANCREAS: No masses. No significant calcifications. No adjacent inflammation or peripancreatic fluid collections. Pancreatic duct not dilated. GALLBLADDER: No identified stones by CT criteria. No inflammatory changes to suggest cholecystitis. ADRENAL GLANDS: No significant masses or asymmetry. RIGHT KIDNEY AND URETER: No solid masses. No significant calcifications. No hydronephrosis or hyd roureter. LEFT KIDNEY AND URETER: No solid masses. No significant calcifications. No hydronephrosis or hydr oureter. AORTA AND VESSELS: No aneurysm. No dissection. Renal arteries, SMA, celiac without stenosis. RETROPERITONEUM: No retroperitoneal adenopathy, hemorrhage or masses. BOWEL AND PERITONEAL CAVITY: Patient drank oral contrast. There is a gastric bypass with multiple ortega rgical clips at the GE junction and it tiny hiatal hernia. Oral contrast is seen in small bowel loop s and colon without evidence of obstruction. The cecum is mobile, in the mid epigastrium. APPENDIX: Normal. PELVIS: Trace free cul-de-sac pelvic fluid. Normal size uterus and ovaries. No adenopathy. Unremar kable bladder ABDOMINAL WALL: Tiny subcentimeter ventral hernia 3 cm superior to the umbilicus, containing omental fat. BONES: No significant or acute findings. OTHER: No other significant finding. IMPRESSION: Trace amount of pelvic cul-de-sac fluid nonspecific. No CT evidence of bowel obstruction or inflammation. Normal appendix. Post gastric bypass. TECHNICAL DOCUMENTATION: JOB ID: [id number] Quality ID # [id number]: Final reports with documentation of one or more dose reduction techniques (e.g., Au tomated exposure control, adjustment of the mA and/or kV according to patient size, use of iterative reconstruction technique) 2010 [employer]- All Rights Reserved Reading location - IP/workstation name: [email or web address]
[2017-12-23] MEDS ORDERED: KETOROLAC TROMETHAMINE INJ/PF 30 MG/1 ML SDV IV ONE (15:25)
[2017-12-23 17:05] VITALS: BP 133/74
== END 2017-12-23 17:05 | disposition home or self-care (01) ==
LOC: ER 10:21
DX: N39.0 Urinary tract infection, site not specified (principal); R31.9 Hematuria, unspecified; R10.30 Lower abdominal pain, unspecified; R10.817 Generalized abdominal tenderness; R68.83 Chills (without fever); R11.0 Nausea; I10 Essential (primary) hypertension; F17.200 Nicotine dependence, unspecified, uncomplicated; Z91.018 Allergy to other foods; Z91.040 Latex allergy status; Z98.84 Bariatric surgery status
CPT/HCPCS: 99284; 96375; 96365; 36415; 87086; 83690; 85025; 81025; 87088; 80053; 81001; 87186; 74177; S0119; J3010; J1885; J2270; J0696

== ENCOUNTER 2018-01-18 06:00 | Emergency (ER) | payer SELFPAY ==
[2018-01-18] MEDS ORDERED: LIDOCAINE 1% INJ-PF (10 MG/ML) 30 ML SDV INJ ONE (07:51)
--- NOTE | 2018-01-18 08:30 | ER Document Report ---
ED General - General Chief Complaint: Laceration Stated Complaint: FINGER INJURY Time Seen by Provider: 01/18/18 07:50 TRAVEL OUTSIDE OF THE [place] IN LAST 30 DAYS: No - HPI Notes: 32-year-old female, [id number] presents with left ring finger injury. Patient cut her volar proximal left ring finger while trying to fix it when she will wipe her.. The wiper was dirty. Bleeding controlled on scene. Tetanus is out of date. Minimal blood loss. Throbbing aching pain, nonradiating, sudden onset. No other modifying factors, no other associated symptoms, no other provocative or palliative factors. - Related Data Allergies/Adverse Reactions: banana [Banana] Allergy (Verified 12/23/17 10:29) latex [Latex] Allergy (Verified 12/23/17 10:29) peach [[place]] Allergy (Verified 12/23/17 10:29) strawberry [[place]] Allergy (Verified 12/23/17 10:29) Past Medical History - Social History Smoking Status: Never Smoker Chew tobacco use (# tins/day): No Family History: Arthritis, DM, Hypertension, Malignancy, Thyroid Disfunction. denies: CAD, COPD, CVA, Hyperlipidemia Patient has suicidal ideation: No Patient has homicidal ideation: No - Past Medical History Cardiac Medical History: Reports: Hx Hypertension Pulmonary Medical History: Reports: Hx Asthma - as a child Renal/ Medical History: Reports: Hx Ovarian Cysts. Denies: Hx Peritoneal Dialysis GI Medical History: Reports: Hx Endoscopy. Denies: Hx Gastritis, Hx Gastroesophageal Reflux Disease, Hx Ulcer Musculoskeletal Medical History: Reports Hx Arthritis - right knee, Reports Hx Musculoskeletal Deformity, Reports Hx Musculoskeletal Trauma Past Surgical History: Reports: Hx Abdominal Surgery - GBP, Hx Gastric Bypass Surgery, Hx Oral Surgery - [place] teeth, Hx Umbilical Hernia, Other - Multiple cyst removed superficial - Immunizations Immunizations up to date: Yes Hx Diphtheria, Pertussis, Tetanus Vaccination: Yes Review of Systems - Review of Systems Notes: Review of systems as in history of present illness, otherwise no significant headache, chest pain, abdominal pain. Physical Exam - Vital signs Vitals: Temp Pulse Resp BP Pulse Ox 99.2 F 74 17 135/89 H 97 01/18/18 06:01 01/18/18 06:01 01/18/18 06:01 01/18/18 06:01 01/18/18 06:01 - Notes Notes: General: Well devloped, no acute distress. HEENT: Normocephalic, atraumatic. Pupils equal round reactive to light. Mucosa moist. No JVD. Chest: No trauma, normal excursion. Respiratory: Good air exchange, normal excursion. Cardiac: Regular rhythm Abdomen: Soft, benign. Nondistended. Back: No asymmetry or gross abnormality. Motor: Grossly normal power and tone. Neurologic: Alert, nonfocal. Vascular: Well perfused Skin: No petechiae or purpura Remedies: Left volar third finger between the PIP and DIP has an approximately 2 cm laceration with caked blood. Distal neurovascular function intact, normal capillary refill. Normal motor function Course - Re-evaluation Re-evalutation: 01/18/18 11:03 Well-appearing female with isolated finger injury. Digital block was performed 1% lidocaine and then the area was irrigated and cleanse copiously with saline and soap. Wound is explored, no gaping. Does not appear to require stitches. Placed dressing, outpatient follow-up. Tetanus is updated. - Vital Signs Vital signs: Temp Pulse Resp BP Pulse Ox 98 F 90 15 130/85 H 98 01/18/18 09:16 01/18/18 09:16 01/18/18 09:16 01/18/18 09:16 01/18/18 09:16 Discharge - Discharge Clinical Impression: Laceration Disposition: HOME, SELF-CARE Instructions: Laceration Care (OM), Soap Cleansing ([facility]), Tetanus Immunization Given ([facility])
[2018-01-18] MEDS ORDERED: DIPH/PERTUSS(ACELL)/TETANUS VAC/PF 0.5 ML SYR (>=10YO) IM ONE (08:50)
[2018-01-18 09:17] VITALS: BP 130/85
== END 2018-01-18 09:19 | disposition home or self-care (01) ==
LOC: ER 06:00
DX: S61.213A Laceration without foreign body of left middle finger without damage to nail, initial encounter (principal); W45.8XXA Other foreign body or object entering through skin, initial encounter; Z23 Encounter for immunization; Z91.040 Latex allergy status; Z91.018 Allergy to other foods; I10 Essential (primary) hypertension; Z98.84 Bariatric surgery status
CPT/HCPCS: 99282; 90471; 90715; 64450; J3490

== ENCOUNTER 2018-03-13 06:12 | Emergency (ER) | payer SELFPAY ==
--- NOTE | 2018-03-13 07:03 | ER Document Report ---
ED General - General Chief Complaint: Urinary Problem Stated Complaint: URINATION PROBLEM Time Seen by Provider: 03/13/18 06:34 TRAVEL OUTSIDE OF THE [place] IN LAST 30 DAYS: No - HPI Notes: Patient is a 32-year-old female that presents to the emergency department for chief complaint of dysuria and hypertension. Patient states she has had burning at the end of urination for the past 3 weeks. There was a period where it started to improve however it has become worse over the last week. She denies any urinary frequency, nausea, abdominal pain, vomiting, fevers and chills. She does have a history of urinary tract infections in the past. She states she is currently trying to get but has not taken a test. Because of a history of endometriosis she has irregular menstrual cycles and is unsure of when her last cycle was. She also has been out of her home lisinopril for the last few weeks because of insurance reasons. She states intermittently she gets headaches and chest pain which is not uncommon when her blood pressure starts to go up. Currently she denies either of those symptoms. Past Medical History: Hypertension, endometriosis Past Surgical History: Negative Social History: Occasional alcohol, occasional tobacco, denies drugs Family History: Reviewed and noncontributory for presenting illness Allergies: Reviewed, see documented allergy list. REVIEW OF SYSTEMS: CONSTITUTIONAL : No fever No chills No diaphoresis No recent illness EENT: No vision changes No congestion No sore throat CARDIOVASCULAR: chest pain No palpitations RESPIRATORY: No shortness of breath No cough No difficulty breathing GASTROINTESTINAL: No abdominal pain No nausea No vomiting No diarrhea GENITOURINARY: dysuria No hematuria No difficulty urinating MUSCULOSKELETAL: No back pain No leg pain No arm pain SKIN: No rashes No lesions LYMPHATIC: No swollen, enlarged glands. NEUROLOGICAL: No lightheadedness headache No weakness No paresthesias PSYCHIATRIC: No anxiety No depression PHYSICAL EXAMINATION: Vital signs reviewed, nursing noted reviewed. GENERAL: Well-appearing, well-nourished and in no acute distress. HEAD: Atraumatic, normocephalic. EYES: Eyes appear normal, extraocular movements intact, sclera anicteric, conjunctiva are normal. ENT: nares patent, oropharynx clear without exudates. Moist mucous membranes. NECK: Normal range of motion, supple without lymphadenopathy LUNGS: Breath sounds clear to auscultation bilaterally and equal. No wheezes rales or rhonchi. HEART: Regular rate and rhythm without murmurs ABDOMEN: Soft, nontender, normoactive bowel sounds. No rebound, guarding, or rigidity. No masses appreciated. EXTREMITIES: Nontender, good range of motion, no pitting or edema. NEUROLOGICAL: No focal neurological deficits. Moves all extremities spontaneously Motor and sensory grossly intact on exam. PSYCH: Normal mood, normal affect. SKIN: Warm, Dry, normal turgor, no rashes or lesions noted on exposed skin - Related Data Allergies/Adverse Reactions: banana [Banana] Allergy (Verified 12/23/17 10:29) latex [Latex] Allergy (Verified 12/23/17 10:29) peach [[place]] Allergy (Verified 12/23/17 10:) strawberry [[place]] Allergy (Verified 12/23/17 10:) Past Medical History - Social History Smoking Status: Current Some Day Smoker Family History: Arthritis, DM, Hypertension, Malignancy, Thyroid Disfunction. denies: CAD, COPD, CVA, Hyperlipidemia - Past Medical History Cardiac Medical History: Reports: Hx Hypertension Pulmonary Medical History: Reports: Hx Asthma - as a child Renal/ Medical History: Reports: Hx Ovarian Cysts. Denies: Hx Peritoneal Dialysis GI Medical History: Reports: Hx Endoscopy. Denies: Hx Gastritis, Hx Gastroesophageal Reflux Disease, Hx Ulcer Musculoskeletal Medical History: Reports Hx Arthritis - right knee, Reports Hx Musculoskeletal Deformity, Reports Hx Musculoskeletal Trauma Past Surgical History: Reports: Hx Abdominal Surgery - GBP, Hx Gastric Bypass Surgery, Hx Oral Surgery - [place] teeth, Hx Umbilical Hernia, Other - Multiple cyst removed superficial - Immunizations Immunizations up to date: Yes Hx Diphtheria, Pertussis, Tetanus Vaccination: Yes Review of Systems - Review of Systems Notes: Dictated Physical Exam - Vital signs Vitals: Temp Pulse Resp BP Pulse Ox 98.8 F 66 18 134/92 H 100 03/13/18 06:12 03/13/18 06:12 03/13/18 06:12 03/13/18 06:12 03/13/18 06:12 - Notes Notes: Dictated Course - Re-evaluation Re-evalutation: 03/13/18 07:02 Vitals reviewed. Nursing notes reviewed. Patient recommended to obtain EKG and chest x-ray for chest pain but declined any further workup of chest pain. She understands that without further testing because of her chest pain may be missed including dysrhythmia and SC. She understands the risks and has capacity to make her own medical decisions. Urinalysis obtained and positive for infection. Patient will be treated with Keflex. Urine is negative. She will return for any new or worsening symptoms. She will be given a refill of her lisinopril while she continues to work on insurance and primary care. Patient in agreement with the plan and stable at time of discharge. 03/13/18 08:00 Laboratory 03/13/18 06:50 Urine Color YELLOW Urine Appearance TURBID Urine pH 5.0 Ur Specific [place] 1.024 Urine Protein 30 H Urine Glucose (UA) NEGATIVE Urine Ketones NEGATIVE Urine Blood SMALL H Urine Nitrite NEGATIVE Urine Bilirubin NEGATIVE Urine Urobilinogen 4.0 H Ur Leukocyte Esterase LARGE H Urine WBC (Auto) >182 Urine RBC (Auto) 22 Urine WBC Clumps MOD Squamous Epi Cells Auto 6 Urine Mucus (Auto) FEW Urine Ascorbic Acid NEGATIVE Urine HCG, Qual NEGATIVE - Vital Signs Vital signs: Temp Pulse Resp BP Pulse Ox 98.8 F 66 18 134/92 H 100 03/13/18 06:12 03/13/18 06:12 03/13/18 06:12 03/13/18 06:12 03/13/18 06:12 - Laboratory Laboratory results interpreted by me: 03/13/18 06:50 Urine Protein 30 H Urine Blood SMALL H Urine Urobilinogen 4.0 H Ur Leukocyte Esterase LARGE H Discharge - Discharge Clinical Impression: UTI (urinary tract infection) Qualifiers: Urinary tract infection type: site unspecified Hematuria presence: without hematuria Qualified Code(s): N39.0 - Urinary tract infection, site not specified Hypertension Qualifiers: Hypertension type: unspecified Qualified Code(s): I10 - Essential (primary) hypertension Condition: Stable Disposition: HOME, SELF-CARE Instructions: Urinary Tract Infection ([facility]) Additional Instructions: Please return to the emergency department if you have any worsening, or concern of your symptoms. Please return to the emergency department if you develop chest pain, difficulty breathing, severe abdominal pain, or ongoing vomiting. Please follow-up with your primary care physician in 2-3 days and any other recommended physicians. If prescribed, take all medications as directed. If you have any questions or concerns do not hesitate to return the emergency department for evaluation. [] Prescriptions: Cephalexin Monohydrate [Keflex 500 mg Capsule] 500 mg PO Q6H 5 Days capsule Lisinopril 5 mg PO DAILY #30 tablet
[2018-03-13 07:51] LABS: APPEARANCE,URINE TURBID; BILIRUBIN,URINE NEGATIVE (NEGATIVE); GLUCOSE, URINE NEGATIVE (NEGATIVE); KETONES,URINE NEGATIVE (NEGATIVE); LEUKOCYTE ESTERASE,URINE LARGE (NEGATIVE); NITRITE,URINE NEGATIVE (NEGATIVE); PROTEIN,URINE 30 mg/dL (NEGATIVE); URINE SPECIFIC GRAVITY 1.024
[2018-03-13 07:55] LABS: COLOR,URINE YELLOW
[2018-03-13] MEDS ORDERED: CEPHALEXIN 500 MG CAPSULE PO ONE (07:59)
[2018-03-13 08:11] VITALS: BP 137/93
== END 2018-03-13 08:12 | disposition home or self-care (01) ==
LOC: ER 06:12
DX: N39.0 Urinary tract infection, site not specified (principal); I10 Essential (primary) hypertension; F17.200 Nicotine dependence, unspecified, uncomplicated; Z91.040 Latex allergy status
CPT/HCPCS: 81001; 81025; 99283